=== PATIENT | female | born 1935 | race Caucasian/White ===

== ENCOUNTER 2017-04-03 17:28 | Inpatient (IN) | payer MEDICARE, MEDICAID ==
[2017-04-03 17:28] VITALS: BMI 21.9
--- NOTE | 2017-04-03 17:52 | ED PDOC ---
HPI: SOB/CHF/COPD Time Seen by Provider: 04/03/17 17:45 Chief Complaint (Nursing): Shortness Of Breath Chief Complaint (Provider): Dyspnea History Per: Patient History/Exam Limitations: no limitations Onset/Duration Of Symptoms: Days (months) Current Symptoms Are (Timing): Still Present Additional Complaint(s): Dyspnea, worsening. Chest tightness. Feels weakness all over. No abd pain, nausea, vomit, diarrhea. Dizziness, light-headed. No abd pain. No leg pain. No cough. Past Medical History Reviewed: Nursing Documentation, Vital Signs Vital Signs: Last Vital Signs Temp 98.0 F 04/03/17 17:34 Pulse 76 04/03/17 17:57 Resp 16 04/03/17 17:34 BP 131/55 L 04/03/17 17:34 Pulse Ox 99 04/03/17 18:56 - Medical History PMH: Anemia, HTN - Surgical History Surgical History: Appendectomy - Family History Family History: States: Unknown Family Hx - Living Arrangements Living Arrangements: With Family - Social History Current smoker - smoking cessation education provided: No Alcohol: None Drugs: Denies - Home Medications Home Medications: Ambulatory Orders Medication Instructions Recorded Ascorbic Acid [Vitamin C] 500 mg PO DAILY 11/25/14 Cholecalciferol (Vitamin D3) 1,000 unit NA DAILY 11/25/14 [Vitamin D3] FLUoxetine [Fluoxetine HCl] 20 mg PO DAILY 11/25/14 Fluticasone Propionate [Flovent 100 mcg IH DAILY 11/25/14 Diskus] Montelukast [Singulair] 1 tab PO DAILY 11/25/14 Pantoprazole Sodium [Protonix] 20 mg PO DAILY 11/25/14 Simvastatin 20 mg PO DAILY 11/25/14 - Allergies Allergies/Adverse Reactions: Allergies Allergy/AdvReac Type Severity Reaction Status Date / Time pollen Allergy ITCHING Uncoded 04/03/17 17:34 Review of Systems ROS Statement: Except As Marked, All Systems Reviewed And Found Negative Constitutional: Positive for: Weakness Cardiovascular: Positive for: Chest Pain, Light Headedness Respiratory: Positive for: Shortness of Breath Neurological: Positive for: Weakness, Dizziness Physical Exam - Reviewed Nursing Documentation Reviewed: Yes Vital Signs Reviewed: Yes - Physical Exam Appears: Positive for: Non-toxic, No Acute Distress Head Exam: Positive for: ATRAUMATIC, NORMAL INSPECTION, NORMOCEPHALIC Skin: Positive for: Normal Color, Warm, DRY Eye Exam: Positive for: EOMI, Normal appearance, PERRL ENT: Positive for: Normal ENT Inspection Neck: Positive for: Normal, Painless ROM Cardiovascular/Chest: Positive for: Regular Rate, Rhythm Respiratory: Positive for: CNT, Normal Breath Sounds Gastrointestinal/Abdominal: Positive for: Normal Exam, Bowel Sounds, Soft. Negative for: Tenderness Back: Positive for: Normal Inspection. Negative for: R CVA Tenderness Extremity: Positive for: Normal ROM Neurologic/Psych: Positive for: Alert, Oriented - Laboratory Results Result Diagrams: 04/03/17 18:00 04/03/17 18:25 Interpretation Of Abn Labs: 7.3 hg, 31/1.5 bun and cr; probnp elevation - ECG ECG: Positive for: Interpreted By Me, Viewed By Me ECG Rhythm: Positive for: Normal QRS, Normal ST Segment, Sinus Rhythm O2 Sat by Pulse Oximetry: 99 Pulse Ox Interpretation: Normal - Radiology X-Ray: Interpreted by Me, Viewed By Me X-Ray Interpretation: Cardiomegaly - Progress ED Course And Treament: 1858: Likely chf. Will give lasix, asa, and admit. Spoke with [facility] resident. Will admit tele obs. Dr. Ellison called and wanted pt. worked up. Disposition - Clinical Impression Clinical Impression: CHF exacerbation, Chest pain - Patient ED Disposition Is Patient to be Admitted: Yes Counseled Patient/Family Regarding: Studies Performed, Diagnosis - Disposition Disposition Time: 19:01 Condition: FAIR Forms: [facility] (Persian) - Pt Status Changed To: Hospital Disposition Of: Observation - POA Present On Arrival: None Core Measure Indicators: Chest Pain
[2017-04-03] MEDS ORDERED: Albuterol-Ipratrop 3 mg / 0.5 (3 ml) UD INH STA (17:54)
[2017-04-03] MEDS ORDERED: Albuterol-Ipratrop 3 mg / 0.5 (3 ml) UD IH STA (17:54)
[2017-04-03] MEDS ORDERED: Albuterol-Ipratrop 3 mg / 0.5 (3 ml) UD ONE (18:09)
[2017-04-03 18:30] LABS: BASO % 0.3 % (0.0-2.0); EOS # 0.1 K/uL (0.0-0.7); HEMATOCRIT 23.8 % (34.0-47.0); LYMPH # 1.7 K/uL (1.0-4.3); LYMPH % 33.4 % (20.0-40.0); MEAN CORPUSCULAR HEMOGLOBIN 22.7 pg (27.0-31.0); MEAN CORPUSCULAR HGB CONC 30.7 g/dL (33.0-37.0); MEAN PLATELET VOLUME 7.7 fl (7.2-11.7); MONO # 0.6 K/uL (0.0-0.8); MONO % 11.5 % (0.0-10.0); NEUT # 2.7 K/uL (1.8-7.0); NEUT % 53.8 % (50.0-75.0); NRBC % 0.1 % (0.0-0.0); RED CELL DISTRIBUTION WIDTH 17.3 % (11.5-14.5); WHITE BLOOD COUNT 5.1 K/uL (4.8-10.8)
[2017-04-03 18:37] LABS: ALB/GLOB RATIO 1.3 (1.0-2.1); ALKALINE PHOSPHATASE 66 U/L (38-126); ALT/SGPT 34 U/L (9-52); AST/SGOT 28 U/L (14-36); BILIRUBIN,TOTAL 0.2 mg/dl (0.2-1.3); BLOOD UREA NITROGEN 31 mg/dl (7-17); CALCIUM 9.1 mg/dL (8.4-10.2); CARBON DIOXIDE 23 mmol/L (22-30); CHLORIDE 104 mmol/L (98-107); GFR AFRICAN-AMERICAN 40; GLUCOSE,RANDOM 103 mg/dL (65-105); POTASSIUM 4.6 MMOL/L (3.6-5.0); SODIUM 136 mmol/l (132-148); TOTAL PROTEIN 6.9 G/DL (6.3-8.2)
[2017-04-03 18:47] LABS: PARTIAL THROMBOPLASTIN TIME 24.1 Seconds (25.6-37.1)
[2017-04-03 20:07] LABS: VENOUS BLOOD GAS BASE EXCESS 2.4 mmol/L (0.0-2.0); VENOUS BLOOD GAS PCO2 42 mmHg (40-60); VENOUS BLOOD PH 7.42 (7.32-7.43)
--- NOTE | 2017-04-03 20:18 | CP.PCM.HP ---
History of Present Illness - History of Present Illness History of Present Illness: Pt is a 81 y/o female with pmhx of HTN, HLD, Anemia presenting to ED with complaints of SOB but has been on going for about a month now, states now after about 3 steps she feels winded and have to catch her breath, also reports not feeling well overall, feels weak, denies any visual changes, chest pain, abdominal pain, fever, chills, dizziness, nausea or vomiting. PMD: Dr. Ellison PMHX: HTN, Anemia, HLD, Depression, Seasonal Allergies PSHX: Blanco Taylor Social: Denies alcohol or smoking Allergies: Environmental, NKDA Present on Admission - Present on Admission Any Indicators Present on Admission: No Review of Systems - Review of Systems All systems: reviewed and no additional remarkable complaints except Review of Systems: per HPI Past Patient History - Past Medical History & Family History Past Medical History?: Yes - Past Social History Alcohol: None Drugs: Denies - CARDIAC Hx Hypertension: Yes - HEMATOLOGICAL/ONCOLOGICAL Hx Anemia: Yes - PSYCHIATRIC Hx Substance Use: No - SURGICAL HISTORY Hx Appendectomy: Yes - ANESTHESIA Hx Anesthesia: Yes Hx Anesthesia Reactions: No Meds Allergies/Adverse Reactions: Allergies Allergy/AdvReac Type Severity Reaction Status Date / Time pollen Allergy ITCHING Uncoded 04/03/17 17:34 Physical Exam - Constitutional Appears: Well, No Acute Distress - Head Exam Head Exam: NORMOCEPHALIC - Eye Exam Eye Exam: PERRL Pupil Exam: NORMAL ACCOMODATION - ENT Exam ENT Exam: Mucous Membranes Moist - Respiratory Exam Respiratory Exam: Clear to Auscultation Bilateral, NORMAL BREATHING PATTERN. absent: Rhonchi, Wheezes - Cardiovascular Exam Cardiovascular Exam: REGULAR RHYTHM, +S1, +S2 - GI/Abdominal Exam GI & Abdominal Exam: Normal Bowel Sounds, Soft. absent: Tenderness - Extremities Exam Extremities exam: Negative for: calf tenderness, pedal edema - Neurological Exam Neurological exam: Alert, CN II-XII Intact, Oriented x3 - Skin Skin Exam: Normal Color, Warm Results - Vital Signs Recent Vital Signs: Last Vital Signs Temp 98.0 F 04/03/17 17:34 Pulse 76 04/03/17 17:57 Resp 16 04/03/17 17:34 BP 158/88 H 04/03/17 19:56 Pulse Ox 99 04/03/17 19:01 - Labs Result Diagrams: 04/03/17 18:00 04/03/17 18:25 Labs: Laboratory Results - last 24 hr 04/03/17 04/03/17 04/03/17 18:00 18:00 18:00 WBC 5.1 RBC 3.21 L Hgb 7.3 L Hct 23.8 L MCV 74.0 L MCH 22.7 L MCHC 30.7 L RDW 17.3 H Plt Count 313 MPV 7.7 Neut % (Auto) 53.8 Lymph % (Auto) 33.4 [place] % (Auto) 11.5 H Eos % (Auto) 1.0 Baso % (Auto) 0.3 Neut # 2.7 Lymph # 1.7 [place] # 0.6 Eos # 0.1 Baso # 0.0 PT 11.1 INR 1.1 APTT 24.1 L pO2 VBG pH VBG pCO2 VBG HCO3 VBG Total CO2 VBG O2 Sat (Calc) VBG Base Excess VBG Potassium Glucose Lactate FiO2 Sodium Potassium Chloride Carbon Dioxide Anion Gap BUN Creatinine Est GFR ( Amer) Est GFR (Non-Af Amer) Random Glucose Calcium Total Bilirubin AST ALT Alkaline Phosphatase Troponin I NT-Pro-B Natriuret Pep Total Protein Albumin Globulin Albumin/Globulin Ratio Venous Blood Potassium BBK History Checked No verified bt 04/03/17 04/03/17 18:25 20:00 WBC RBC Hgb Hct MCV MCH MCHC RDW Plt Count MPV Neut % (Auto) Lymph % (Auto) [place] % (Auto) Eos % (Auto) Baso % (Auto) Neut # Lymph # [place] # Eos # Baso # PT INR APTT pO2 19 L VBG pH 7.42 VBG pCO2 42 VBG HCO3 25.0 VBG Total CO2 28.5 H VBG O2 Sat (Calc) 34.0 L VBG Base Excess 2.4 H VBG Potassium 5.1 Glucose 107 H Lactate 1.3 FiO2 21.0 Sodium 136 137.0 Potassium 4.6 Chloride 104 106.0 Carbon Dioxide 23 Anion Gap 14 BUN 31 H Creatinine 1.5 H Est GFR ( Amer) 40 Est GFR (Non-Af Amer) 33 Random Glucose 103 Calcium 9.1 Total Bilirubin 0.2 AST 28 ALT 34 Alkaline Phosphatase 66 Troponin I < 0.0120 NT-Pro-B Natriuret Pep 1190 H Total Protein 6.9 Albumin 3.9 Globulin 3.0 Albumin/Globulin Ratio 1.3 Venous Blood Potassium 5.1 BBK History Checked Assessment & Plan - Assessment and Plan (Free Text) Assessment: 81 y/o female with pmhx of HTN, Anemia, HLD being admitted for dyspnea with activity and anemia Plan: 1. SOB (new onset CHF vs COPD given history of asthma vs Symptomatic anemia) -Pt does not have history of CHF,at this point, diagnosis is not CHF exacerbation -Echo ordered,f/u results -f/u official reading of chest xray -cardiology consulted -consider pulmonology consult 2. Anemia chronic history of anemia, had endoscopy in 2014 due to enemia which was WNL last H/H was 09/2016- 11.8/38.1, prior to that was 04/2016- 11.5/35.4 H/H today 7.3/23.8, repeating cbc at 4am consider transfusing in the morning; Type and screen ordered, results pending, f /u consider GI consult 3. HTN (uncontrolled) resumed home medication monitor 4. Asthma (moderate persistent) home medication resumed 5. Diet- heart healthy 6. DVT prophylaxis- Lovenox
[2017-04-04] MEDS ORDERED: Influenza Vaccine 18yr & older 0.5 ML/45 MCG SYR IM ONE (06:00)
[2017-04-04 06:32] LABS: HEMATOCRIT 25.5 % (34.0-47.0); MEAN CELL VOLUME 73.1 fl (81.0-99.0); MEAN CORPUSCULAR HGB CONC 31.5 g/dL (33.0-37.0); RED CELL DISTRIBUTION WIDTH 16.9 % (11.5-14.5); WHITE BLOOD COUNT 3.2 K/uL (4.8-10.8)
[2017-04-04] MEDS ORDERED: Pantoprazole 20 mg EC Tab PO SCH (09:00)
[2017-04-04] MEDS ORDERED: Enoxaparin 30 mg Syringe SC SCH (09:00)
--- NOTE | 2017-04-04 10:12 | RAD ---
HISTORY: dyspnea COMPARISON: Comparison is made to 04/03 11/14 FINDINGS: LUNGS: Mild pulmonary vascular congestion noted. PLEURA: No significant pleural effusion identified, no pneumothorax apparent. CARDIOVASCULAR: [id number] cardiomegaly again noted. OSSEOUS STRUCTURES: No significant abnormalities. VISUALIZED UPPER ABDOMEN: Normal. OTHER FINDINGS: None. IMPRESSION: Cardiomegaly and mild pulmonary vascular congestion.
--- NOTE | 2017-04-04 10:40 | CARD ---
APPROVED REPORT EXAM: Two-dimensional and M-mode echocardiogram with Doppler and color Doppler. Other Information Quality : GoodRhythm : NSR INDICATION Congestive Heart Failure 2D DIMENSIONS Left Atrium (2D)2.33 (1.6-4.0cm)IVSd1.11 (0.7-1.1cm) LVDd4.72 (3.9-5.9cm)PWd0.72 (0.7-1.1cm) IVSs1.18 (0.8-1.2cm)LVDs2.91 (2.5-4.0cm) FS (%) 38.4 %PWs0.63 (0.8-1.2cm) M-Mode DIMENSIONS Left Atrium (MM)3.71 (2.5-4.0cm)IVSd0.91 (0.7-1.1cm) Aortic Root3.03 (2.2-3.7cm)LVDd6.24 (4.0-5.6cm) Aortic Cusp Exc.1.50 (1.5-2.0cm)PWd0.91 (0.7-1.1cm) IVSs1.15 cmFS (%) 32 % LVDs4.24 (2.0-3.8cm)PWs1.18 cm Aortic Valve AoV Peak Xsuwmsuz456.1cm/sAoV VTI40.3cmAO Peak GR.24mmHg AO Mean GR.12mmHgAI P 1/2 [id number] Mitral Valve MV E Rxtdduik51.7cm/sMV DECEL IEFJ222qxAU A Fxzlliqe946.2cm/s MV FOJ22czI/A ratio0.8MVA (PHT)3.21cm2 TDI Lateral E' Peak V8.15cm/sMedial E' Peak V5.54cm/sE/Lateral E'10.1 E/Medial E'14.9 Pulmonary Valve PV Peak Pqtinute22.4cm/s Tricuspid Valve TR Peak Iecxdgmb950uz/sRAP NIEHYTZR83unOfZX Peak Gr.17mmHg [id number] LEFT VENTRICLE The left ventricle is normal size. There is normal left ventricular wall thickness. The left ventricular function is normal. The left ventricular ejection fraction is within the normal range. The Ejection Fraction is 65-70%. There is normal LV segmental wall motion. Transmitral Doppler flow pattern is Grade I-abnormal relaxation pattern. No left ventricle thrombus noted on this study. There is no mass noted in the left ventricle. RIGHT VENTRICLE The right ventricle is normal size. There is normal right ventricular wall thickness. The right ventricular systolic function is normal. ATRIA The left atrium size is normal. The right atrium size is normal. The interatrial septum is intact with no evidence for an atrial septal defect. AORTIC VALVE The aortic valve is normal in structure and function. There is mild aortic regurgitation. There is no aortic valvular stenosis. There is no aortic valvular vegetation. MITRAL VALVE The mitral valve is normal in structure and function. There is no evidence of mitral valve prolapse. There is no mitral valve stenosis. There is no mitral valve regurgitation noted. TRICUSPID VALVE The tricuspid valve is normal in structure and function. There is no tricuspid valve regurgitation noted. There is no tricuspid valve prolapse or vegetation. There is no tricuspid valve stenosis. PULMONIC VALVE The pulmonary valve is normal in structure and function. There is no pulmonic valvular regurgitation. There is no pulmonic valvular stenosis. GREAT VESSELS The aortic root is normal in size. The IVC is normal in size and collapses >50% with inspiration. PERICARDIAL EFFUSION The pericardium appears normal. There is no pleural effusion. <Conclusion> The left ventricle is normal size. The left ventricular function is normal. The left ventricular ejection fraction is within the normal range. The Ejection Fraction is 65-70%. Transmitral Doppler flow pattern is Grade I-abnormal relaxation pattern. There is mild aortic regurgitation.
--- NOTE | 2017-04-04 10:45 | CP.PCM.PN ---
Subjective - Date & Time of Evaluation Date of Evaluation: 04/04/17 Time of Evaluation: 07:25 - Subjective Subjective: Patient seen and examined in Telemetry this morning. Patient still c/o SOB, and intermittent dizziness, but denies chest pain, cough , acute visual changes, epigastric pain, blood in urine or stools. Patient reports that she took advil yesterday 2 tabs twice because headaches. Denies headaches ta this evaluation. Afebrile, no tachycardia, controlled BP Objective - Vital Signs/Intake and Output Vital Signs (last 24 hours): Temp Pulse Resp BP Pulse Ox 97.9 F 77 18 135/68 96 04/04/17 08:05 04/04/17 10:37 04/04/17 08:05 04/04/17 10:37 04/04/17 08:05 - Medications Medications: Current Medications Atorvastatin Calcium (Lipitor) 10 mg PO DAILY [facility] Last Admin: 04/04/17 08:22 Dose: 10 mg Enoxaparin Sodium (Lovenox) 30 mg SC DAILY [facility] PRN Reason: Protocol Last Admin: 04/04/17 08:22 Dose: 30 mg Escitalopram Oxalate (Lexapro) 10 mg PO DAILY [facility] Last Admin: 04/04/17 08:22 Dose: 10 mg Lisinopril (Zestril) 5 mg PO DAILY [facility] Last Admin: 04/04/17 10:37 Dose: 5 mg Montelukast Sodium (Singulair) 5 mg PO DAILY [facility] Last Admin: 04/04/17 10:37 Dose: 5 mg Pantoprazole Sodium (Protonix Ec Tab) 20 mg PO DAILY [facility] Last Admin: 04/04/17 08:22 Dose: 20 mg - Labs Labs: 04/04/17 05:00 04/03/17 18:25 PT 11.1 Seconds (9.8-13.1) 04/03/17 18:00 INR 1.1 (0.9-1.2) 04/03/17 18:00 APTT 24.1 Seconds (25.6-37.1) L 04/03/17 18:00 - Constitutional Appears: No Acute Distress - ENT Exam ENT Exam: Mucous Membranes Moist - Respiratory Exam Respiratory Exam: Clear to Ausculation Bilateral, NORMAL BREATHING PATTERN. absent: Chest Wall Tenderness, Rales, Rhonchi, Wheezes, Respiratory Distress, Stridor - Cardiovascular Exam Cardiovascular Exam: REGULAR RHYTHM, +S1, +S2 - GI/Abdominal Exam GI & Abdominal Exam: Soft, Normal Bowel Sounds. absent: Distended, Guarding, Rigid, Tenderness - Extremities Exam Extremities Exam: Normal Inspection. absent: Calf Tenderness, Pedal Edema - Neurological Exam Neurological Exam: Alert, Awake, Oriented x3 - Skin Skin Exam: Dry, Intact, Pallor Assessment and Plan - Assessment and Plan (Free Text) Assessment: 81 y/o female with pmhx of HTN, Anemia, HLD being admitted for symptomatic anemia. Plan: Microcytic anemia possible acute on chronic, unclear etiology chronic history of anemia, had endoscopy in 2014 due to enemia which was WNL last H/H was 09/2016- 11.8/38.1, prior to that was 04/2016- 11.5/35.4 H/H on admission was 7.3/23.8 Repeating cbc this morning was 8.0/25.5 will start anemia work up, and will hold transfusion for now Type and screen ordered GI consult appreciated, f/u rec Hemo consult appreciated , f/u rec HTN c/w lisinopril 5 mg PO f/u BP Hyperlipidemia c/w Atorvastatin 10 mg PO Asthma (moderate persistent) asymptomatic c/w singulair 5 mg PO Albuterol neb PRN DVT prophylaxis SCDs for now low H/H of unknown etiology
--- NOTE | 2017-04-04 10:49 | CARD ---
APPROVED REPORT EKG Measurement Heart [id number] <Conclusion> Normal sinus rhythm Normal ECG
[2017-04-04 11:13] LABS: HEMATOCRIT 24.6 % (34.0-47.0); MEAN CELL VOLUME 73.9 fl (81.0-99.0); MEAN CORPUSCULAR HEMOGLOBIN 22.7 pg (27.0-31.0); MEAN CORPUSCULAR HGB CONC 30.7 g/dL (33.0-37.0); RED CELL DISTRIBUTION WIDTH 17.3 % (11.5-14.5); RETIC% 2.3 % (0.5-1.5); WHITE BLOOD COUNT 7.1 K/uL (4.8-10.8)
[2017-04-04 11:20] LABS: BILIRUBIN,TOTAL 0.3 mg/dl (0.2-1.3)
[2017-04-04 11:22] LABS: IRON < 10 ug/dL (37-170)
--- NOTE | 2017-04-04 19:31 | CP.PCM.CON ---
History of Present Illness - History of Present Illness History of Present Illness: 81 year old female with a history of chronic iron deficiency anemia, admitted with symptomatic anemia. The patient is well known to me from the past and has recieved IV iron in the office for her iron deficiency. She underwent bone marrow evaluation for chronic anemia when her GI work up returned negative. She has not been seen by me since 2014. She reports to being treated in [place] for a GI parasite with resolution of her iron deficiency. She is not sure of the parasite she was treated for. She is s/p PRBC transfusion currently and reports to feeling better. She denies abnormal bleeding and bruising. Past medical history: Iron deficiency anemia Past surgical history: xochitl Taylor Family history: Denies hematologic and oncologic problems Social history: Denies tobacco, alcohol, and illicit drug use. Allergies: NKDA Review of systems: All remaining review of systems including HEENT, cardiovascular, respiratory, gastrointestinal, genitourinary, musculoskeletal, dermatologic, neurologic, and psychiatric are negative unless mentioned in the HPI. Past Patient History - Past Medical History & Family History Past Medical History?: Yes - Past Social History Alcohol: None Drugs: Denies - CARDIAC Hx Hypertension: Yes - HEMATOLOGICAL/ONCOLOGICAL Hx Anemia: Yes - MUSCULOSKELETAL/RHEUMATOLOGICAL Hx Falls: No - PSYCHIATRIC Hx Substance Use: No - SURGICAL HISTORY Hx Appendectomy: Yes - ANESTHESIA Hx Anesthesia: Yes Hx Anesthesia Reactions: No Meds Home Medications: Home Medication List Medication Instructions Recorded Confirmed Type Carvedilol [Coreg] 3.125 mg PO Q12 #60 tab 04/06/17 Rx Ferrous Sulfate [Feosol] 325 mg PO BID #60 tab 04/06/17 Rx Lisinopril [Zestril] 10 mg PO DAILY #30 tab 04/06/17 Rx Allergies/Adverse Reactions: Allergies Allergy/AdvReac Type Severity Reaction Status Date / Time pollen Allergy ITCHING Uncoded 04/03/17 17:34 - Medications Medications: Current Medications Atorvastatin Calcium (Lipitor) 10 mg PO DAILY [facility] Last Admin: 04/04/17 08:22 Dose: 10 mg Carvedilol (Coreg) 3.125 mg PO Q12 [facility] Escitalopram Oxalate (Lexapro) 10 mg PO DAILY [facility] Last Admin: 04/04/17 08:22 Dose: 10 mg Lisinopril (Zestril) 5 mg PO DAILY [facility] Last Admin: 04/04/17 10:37 Dose: 5 mg Montelukast Sodium (Singulair) 5 mg PO DAILY [facility] Last Admin: 04/04/17 10:37 Dose: 5 mg Pantoprazole Sodium (Protonix Ec Tab) 40 mg PO DAILY [facility] Physical Exam - Head Exam Head Exam: ATRAUMATIC - Eye Exam Eye Exam: Normal appearance - ENT Exam ENT Exam: Mucous Membranes Dry - Respiratory Exam Respiratory Exam: NORMAL BREATHING PATTERN - Cardiovascular Exam Cardiovascular Exam: +S1, +S2 - GI/Abdominal Exam GI & Abdominal Exam: Normal Bowel Sounds - Extremities Exam Extremities exam: Positive for: normal inspection - Neurological Exam Neurological exam: Oriented x3 - Psychiatric Exam Psychiatric exam: Normal Affect, Normal Mood - Skin Skin Exam: Warm Results - Vital Signs Recent Vital Signs: Last Vital Signs Temp 97.8 F 04/04/17 16:25 Pulse 76 04/04/17 16:25 Resp 16 04/04/17 16:25 BP 154/68 H 04/04/17 16:25 Pulse Ox 96 04/04/17 16:25 - Labs Result Diagrams: 04/06/17 07:00 04/06/17 05:30 Labs: Laboratory Results - last 24 hr 04/03/17 04/03/17 04/03/17 05:00 18:00 20:00 WBC RBC Hgb Hct MCV MCH MCHC RDW Plt Count Retic Count pO2 19 L VBG pH 7.42 VBG pCO2 42 VBG HCO3 25.0 VBG Total CO2 28.5 H VBG O2 Sat (Calc) 34.0 L VBG Base Excess 2.4 H VBG Potassium 5.1 Sodium 137.0 Chloride 106.0 Glucose 107 H Lactate 1.3 FiO2 21.0 Iron TIBC % Saturation Ferritin Total Bilirubin Direct Bilirubin Lactate Dehydrogenase Troponin I Venous Blood Potassium 5.1 Blood Type O POSITIVE Blood Type Confirm O POSITIVE Antibody Screen Negative Crossmatch See Detail BBK History Checked No verified bt 04/04/17 04/04/17 04/04/17 05:00 07:17 10:20 WBC 3.2 L 7.1 D RBC 3.49 L 3.33 L Hgb 8.0 L 7.6 L Hct 25.5 L 24.6 L MCV 73.1 L 73.9 L MCH 23.0 L 22.7 L MCHC 31.5 L 30.7 L RDW 16.9 H 17.3 H Plt Count 337 318 Retic Count 2.3 H pO2 VBG pH VBG pCO2 VBG HCO3 VBG Total CO2 VBG O2 Sat (Calc) VBG Base Excess VBG Potassium Sodium Chloride Glucose Lactate FiO2 Iron TIBC % Saturation Ferritin Total Bilirubin Direct Bilirubin Lactate Dehydrogenase Troponin I < 0.0120 Venous Blood Potassium Blood Type Blood Type Confirm Antibody Screen Crossmatch BBK History Checked 04/04/17 04/04/17 10:20 10:20 WBC RBC Hgb Hct MCV MCH MCHC RDW Plt Count Retic Count pO2 VBG pH VBG pCO2 VBG HCO3 VBG Total CO2 VBG O2 Sat (Calc) VBG Base Excess VBG Potassium Sodium Chloride Glucose Lactate FiO2 Iron < 10 L TIBC 396 % Saturation Ferritin 7.1 Total Bilirubin 0.3 Direct Bilirubin 0.2 Lactate Dehydrogenase 510 Troponin I Venous Blood Potassium Blood Type Blood Type Confirm Antibody Screen Crossmatch BBK History Checked Assessment & Plan (1) Anemia Assessment and Plan: work up consistent with iron deficiency agree with transfusion support and IV iron pt reports to GI parasite in the past no indication for repat bone marrow biopsy will need repeat GI w/u which can be done as an outpatient Thank you for this interesting consult Status: Acute
--- NOTE | 2017-04-04 21:16 | CP.PCM.CON ---
History of Present Illness - History of Present Illness History of Present Illness: PT CO RUIZ X 2 MONTHS W COUGH AND WEAKNESS. DENIES CP, PALP, LH, DIZZINESS, ORTHOPNEA, PND, CANDELARIO. NO N/V/D/C. NO F/C/NIGHT SWEATS. NO WEIGHT LOSS. PT HAS ANEMIA. 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 SHE WAS DIAGNOSED IN [place] AFTER TRAVELING TO [place]. SHE WAS TREATED AND HER SYMPTOMS WENT AWAY. THIS WAS 2 YEARS AGO. SHE DENIES ABD PAIN, HEMATURIA, HEMATOCHEZIA, MELENA, BRBPR. SHE DENIES VAGINAL BLEEDING OR GINGIVAL BLEEDING. PT ALSO HAS A HX OF CHEWING ON ICE CHIPS FOR MANY YEARS. Review of Systems - Constitutional Constitutional: As Per HPI, Fatigue, Lethargy, Weakness. absent: Anorexia, Chills, Daytime Sleepiness, Excessive Sweating, Fever, Frequent Falls, Headache , Increased Appetite, Malaise, Night Sweats, Snoring, Sleep Apnea, Weight Gain, Weight Loss, Other - EENT Eyes: As Per HPI. absent: Blind Spots, Blurred Vision, Change in Vision, Decreased Night Vision, Diplopia, Discharge, Dry Eye, Exophthalmos, Floaters, Irritation, Itchy Eyes, Loss of Peripheral Vision, Pain, Photophobia, Requires Corrective Lenses, Sees Flashes, Spots in Vision, Tunnel Vision, Other Visual Disturbances, Loss of Vision, Other Ears: As Per HPI. absent: Decreased Hearing, Ear Discharge, Ear Pain, Tinnitus , Abnormal Hearing, Disequilibrium, Dizziness, Other Nose/Mouth/Throat: As Per HPI. absent: Epistaxis, Nasal Congestion, Nasal Discharge, Nasal Obstruction, Nasal Trauma, Nose Pain, Post Nasal Drip, Sinus Pain, Sinus Pressure, Bleeding Gums, Change in Voice, Dental Pain, Dry Mouth, Dysphagia, Halitosis, Hoarsness, Lip Swelling, Mouth Lesions, Mouth Pain, Odynophagia, Sore Throat, Throat Swelling, Tongue Swelling, Facial Pain, Neck Pain, Neck Mass, Other - Breasts Breasts: As Per HPI. absent: Change in Shape, Mass, Pain, Nipple Discharge, Nipple Inversion, Skin Changes, Swelling, Other - Cardiovascular Cardiovascular: As Per HPI, Dyspnea on Exertion. absent: Acrocyanosis, Chest Pain, Chest Pain at Rest, Chest Pain with Activity, Claudication, Diaphoresis, Dyspnea, Edema, Irregular Heart Rhythm, Pain Radiating to Arm/Neck/Jaw, Leg Edema, Leg Ulcers, Lightheadedness, Orthopnea, Palpitations, Paroxysmal Nocturnal Dyspnea, Pedal Edema, Radiating Pain, Rapid Heart Rate, Slow Heart Rate, Syncope, Other - Respiratory Respiratory: As Per HPI. absent: Cough, Dyspnea, Hemoptysis, Dyspnea on Exertion, Wheezing, Snoring, Stridor, Pain on Inspiration, Chest Congestion, Excessive Mucous Production, Change in Mucous Color, Pain with Coughing, Other - Gastrointestinal Gastrointestinal: As Per HPI. absent: Abdominal Pain, Belching, Bloating, Change in Bowel Habits, Change in Stool Character, Coffee Ground Emesis, Constipation, Cramping, Diarrhea, Dyspepsia, Dysphagia, Early Satiety, Excessive Flatus, Fecal Incontinence, Heartburn, Hematemesis, Hematochezia, Loose Stools, Melena, Nausea, Odynophagia, Temesmus, Vomiting, Other - Genitourinary Genitourinary: As Per HPI. absent: Change in Urinary Stream, Difficulty Urinating, Dysuria, Flank Pain, Hematuria, Pyuria, Nocturia, Urinary Incontinence, Urinary Frequency, Urinary Hesitance, Urinary Urgency, Voiding Freq/Small Amts, Freq UTI, Hx Renal/Bladder Calculi, Hx /Renal Surgery, Bladder Distension, Other - Reproductive: Female Reproductive:Female: As Per HPI. absent: Amenorrhea, Amenorrhea/ Control, Currently Menstual, Cycle <21 Days, Cycle >35 Days, Cycle Variable, Menses 1-7 Days, Menses >/= 8 Days, Menses Variable, Cycle > 4 Weeks Between, No Menses for 6 Months, Heavy Menses, Light Menses, Normal Menses, Spotting Between Cycles , S/P Hysterectomy, Menopausal, Post Menopausal, Premenarche, Abnormal Vaginal Bleeding, Dysmenorrhea, Dyspareunia, Genital Lesions, Genital Pruritis, Pelvic Pain, Prolapse Symptoms, Sexual Dysfunction, Vaginal Discharge, Vaginal Dryness , Vaginal Odor, Vaginal Pruritis, Other - Menstruation Menstruation: As Per HPI. absent: Amenorrhea, Amenorrhea/ Control, Currently Menstual, Cycle <21 Days, Cycle >35 Days, Cycle Variable, Menses 1-7 Days, Menses >/= 8 Days, Menses Variable, Cycle > 4 Weeks Between, No Menses for 6 Months, Heavy Menses, Light Menses, Normal Menses, Spotting Between Cycles , S/P Hysterectomy, Menopausal, Post Menopausal, Premenarche, Abnormal Vaginal Bleeding, Dysmenorrhea, Other - Musculoskeletal Musculoskeletal: As Per HPI. absent: Abnormal Gait, Arthralgias, Atrophy, Back Pain, Deformity, Joint Swelling, Limited Range of Motion, Loss of Height, Muscle Cramps, Muscle Weakness, Myalgias, Neck Pain, Numbness, Radiating Pain into Limb, Stiffness, Tingling, Other - Integumentary Integumentary: As Per HPI. absent: Acne, Alopecia, Bleeding Lesions, Change in Hair, Change in Nails, Change in Pigmentation, Changing Lesions, Dry Skin, Erythema, Furuncle, Hirsutism, Lesions, New Lesions, Non-Healing Lesions, Photosensitivity, Pruritus, Rash, Skin Pain, Skin Ulcer, Sores, Striae, Swelling , Unusual Bruising, Wounds, Jaundice, Other - Neurological Neurological: As Per HPI. absent: Abnormal Gait, Abnormal Hearing, Abnormal Movements, Abnormal Speech, Behavioral Changes, Burning Sensations, Confusion, Convulsions, Disequilibrium, Dizziness, Numbness, Focal Weakness, Frequent Falls , Headaches, Lack of Coordination, Loss of Vision, Memory Loss, Paresthesias, Radicular Pain, Restless Legs, Sensory Deficit, Syncope, Tingling, Tremor, Vertigo, Weakness, Other Visual Disturbances, Other - Psychiatric Psychiatric: As Per HPI. absent: Abnormal Sleep Pattern, Anhedonia, Anxiety, Auditory Hallucinations, Behavioral Changes, Change in Appetite, Change in Libido, Confusion, Depression, Difficulty Concentrating, Hallucinations, Homicidal Ideation, Hopelessness, Irritability, Memory Loss, Mood Swings, Panic Attacks, Paranoia, Suicidal Ideation, Visual Hallucinations, Tactile Hallucinations, Other - Endocrine Endocrine: As Per HPI. absent: Change in Body Appearance, Change in Libido, Cold Intolorance, Deepening of Voice, Excessive Sweating, Fatigue, Flushing, Heat Intolorance, Increase in Ring/Shoe/Hat Size, Palpitations, Polydipsia, Polyphagia, Polyuria, Other - Hematologic/Lymphatic Hematologic: As Per HPI. absent: Easy Bleeding, Easy Bruising, Lymphadenopathy , Other Past Patient History - Past Medical History & Family History Past Medical History?: Yes - Past Social History Smoking Status: Never Smoked Chewing Tobacco Use: No Cigar Use: No Alcohol: None Drugs: Denies - CARDIAC Hx Hypertension: Yes - PULMONARY Hx Respiratory Disorders: No - NEUROLOGICAL Hx Neurological Disorder: No - HEENT Hx HEENT Problems: No - RENAL Hx Chronic Kidney Disease: No - ENDOCRINE/METABOLIC Hx Endocrine Disorders: No - HEMATOLOGICAL/ONCOLOGICAL Hx Anemia: Yes - INTEGUMENTARY Hx Dermatological Problems: No - MUSCULOSKELETAL/RHEUMATOLOGICAL Hx Musculoskeletal Disorders: No Hx Falls: No - GASTROINTESTINAL Hx Gastrointestinal Disorders: Yes (PARASITIC INFXN) - GENITOURINARY/GYNECOLOGICAL Hx Genitourinary Disorders: No - PSYCHIATRIC Hx Psychophysiologic Disorder: No Hx Substance Use: No - SURGICAL HISTORY Hx Appendectomy: Yes - ANESTHESIA Hx Anesthesia: Yes Hx Anesthesia Reactions: No Meds Allergies/Adverse Reactions: Allergies Allergy/AdvReac Type Severity Reaction Status Date / Time pollen Allergy ITCHING Uncoded 04/03/17 17:34 - Medications Medications: Current Medications Atorvastatin Calcium (Lipitor) 10 mg PO DAILY [facility] Last Admin: 04/04/17 08:22 Dose: 10 mg Carvedilol (Coreg) 3.125 mg PO Q12 [facility] Escitalopram Oxalate (Lexapro) 10 mg PO DAILY [facility] Last Admin: 04/04/17 08:22 Dose: 10 mg Iron Sucrose 200 mg/ Sodium (Chloride) 110 mls @ 110 mls/hr IVPB DAILY [facility] Stop: 04/09/17 20:01 Lisinopril (Zestril) 5 mg PO DAILY [facility] Last Admin: 04/04/17 10:37 Dose: 5 mg Montelukast Sodium (Singulair) 5 mg PO DAILY [facility] Last Admin: 04/04/17 10:37 Dose: 5 mg Pantoprazole Sodium (Protonix Ec Tab) 40 mg PO DAILY [facility] Physical Exam - Constitutional Appears: Non-toxic - Head Exam Head Exam: ATRAUMATIC, NORMAL INSPECTION, NORMOCEPHALIC - Eye Exam Eye Exam: EOMI, Normal appearance, PERRL. absent: Conjunctival injection, Nystagmus, Periorbital swelling, Periorbital tenderness, Scleral icterus Pupil Exam: NORMAL ACCOMODATION, PERRL. absent: Fixed, Irregular, Miosis, Mydriatic, Unequal - ENT Exam ENT Exam: Mucous Membranes Moist, Normal Exam. absent: Mucous Membranes Dry, Normal External Ear Exam, Normal Oropharynx, TM's Normal Bilaterally - Neck Exam Neck exam: Positive for: Normal Inspection. Negative for: Full Rom, Lymphadenopathy, Meningismus, Tenderness, Thyromegaly - Respiratory Exam Respiratory Exam: Clear to Auscultation Bilateral, NORMAL BREATHING PATTERN. absent: Accessory Muscle Use, Chest Wall Tenderness, Decreased Breath Sounds, Prolonged Expiratory Phase, Rales, Rhonchi, Wheezes, Respiratory Distress, Stridor - Cardiovascular Exam Cardiovascular Exam: REGULAR RHYTHM, +S1, +S2, Systolic Murmur. absent: Bradycardia, Tachycardia, Clicks, Diastolic murmur, Gallop, Irregular Rhythm, JVD, RRR, Rubs, +S4 - GI/Abdominal Exam GI & Abdominal Exam: Normal Bowel Sounds, Soft. absent: Bruit, Diminished Bowel Sounds, Distended, Firm, Guarding, Hernia, Hyperactive Bowel Sounds, Hypoactive Bowel Sounds, Mass, Organomegaly, Pulsatile Mass, Rebound, Rigid, Tenderness - Rectal Exam Rectal Exam: Deferred - Extremities Exam Extremities exam: Positive for: normal inspection. Negative for: calf tenderness, full ROM, joint swelling, normal capillary refill, pedal edema, tenderness, pedal pulses present - Back Exam Back exam: NORMAL INSPECTION. absent: CVA tenderness (L), CVA tenderness (R), FULL ROM, muscle spasm, paraspinal tenderness, rash noted, tenderness, vertebral tenderness - Neurological Exam Neurological exam: Alert, CN II-XII Intact, Normal Gait, Oriented x3, Reflexes Normal - Psychiatric Exam Psychiatric exam: Normal Affect, Normal Mood - Skin Skin Exam: Dry, Intact, Normal Color, Warm Results - Vital Signs Recent Vital Signs: Last Vital Signs Temp 98 F 04/04/17 20:04 Pulse 88 04/04/17 20:04 Resp 16 04/04/17 20:04 BP 169/62 H 04/04/17 20:04 Pulse Ox 99 04/04/17 20:04 - Labs Result Diagrams: 04/04/17 10:20 04/03/17 18:25 Labs: Laboratory Results - last 24 hr 04/03/17 04/03/17 04/04/17 05:00 18:00 05:00 WBC 3.2 L RBC 3.49 L Hgb 8.0 L Hct 25.5 L MCV 73.1 L MCH 23.0 L MCHC 31.5 L RDW 16.9 H Plt Count 337 Retic Count Iron TIBC % Saturation Ferritin Total Bilirubin Direct Bilirubin Lactate Dehydrogenase Troponin I Blood Type O POSITIVE Blood Type Confirm O POSITIVE Antibody Screen Negative Crossmatch See Detail BBK History Checked No verified bt 04/04/17 04/04/17 04/04/17 07:17 10:20 10:20 WBC 7.1 D RBC 3.33 L Hgb 7.6 L Hct 24.6 L MCV 73.9 L MCH 22.7 L MCHC 30.7 L RDW 17.3 H Plt Count 318 Retic Count 2.3 H Iron TIBC % Saturation Ferritin 7.1 Total Bilirubin 0.3 Direct Bilirubin 0.2 Lactate Dehydrogenase 510 Troponin I < 0.0120 Blood Type Blood Type Confirm Antibody Screen Crossmatch BBK History Checked 04/04/17 10:20 WBC RBC Hgb Hct MCV MCH MCHC RDW Plt Count Retic Count Iron < 10 L TIBC 396 % Saturation Ferritin Total Bilirubin Direct Bilirubin Lactate Dehydrogenase Troponin I Blood Type Blood Type Confirm Antibody Screen Crossmatch BBK History Checked - EKG Data EKG Interpreted by: Myself EKG shows normal: Sinus rhythm Rate: Normal Assessment & Plan (1) RUIZ (dyspnea on exertion) Status: Acute (2) Fatigue Status: Acute (3) Parasitic gastrointestinal disorder Status: Acute (4) Anemia Status: Acute (5) Pica in adults Status: Acute - Assessment and Plan (Free Text) Plan: PTS SYMPTOMS AND MURMUR MAY BE EXPLAINED BY HER ANEMIA. GIVEN HER PICA WOULD CONSIDER FE OR VIT/MINERAL DEF. GIVEN HX OF PARASITIC INFXN, GI OR ID EVAL MAY BE INDICATED. WILL ORDER ECHO FOR HER MURMUR AND RUIZ. NO NEED FOR ST PT HAS NO RISK FACTORS AND THIS DOES NOT APPEAR TO BE CARDIAC IN NATURE. 75 MIN TOTAL CARE TIME. WILL ALSO CHECK ESR, FE, B12, FOLATE, ZINC, MAG, VIT C AND D.
--- NOTE | 2017-04-04 23:42 | CP.PCM.PN ---
Subjective - Date & Time of Evaluation Date of Evaluation: 04/04/17 Time of Evaluation: 23:42 - Subjective Subjective: PT HAD ECHO YESTERDAY. MILD AI, NORMAL EF. BP INCREASED SO I ADDED COREG. Objective - Vital Signs/Intake and Output Vital Signs (last 24 hours): Temp Pulse Resp BP Pulse Ox 98 F 76 16 159/78 H 99 04/04/17 20:04 04/04/17 23:19 04/04/17 20:04 04/04/17 23:19 04/04/17 20:04 - Medications Medications: Current Medications Atorvastatin Calcium (Lipitor) 10 mg PO DAILY [facility] Last Admin: 04/04/17 08:22 Dose: 10 mg Carvedilol (Coreg) 3.125 mg PO Q12 [facility]S [facility] Last Admin: 04/04/17 23:19 Dose: 3.125 mg Escitalopram Oxalate (Lexapro) 10 mg PO DAILY [facility] 234 [facility]S AT [facility] Last Admin: 04/04/17 08:22 Dose: 10 mg Iron Sucrose 200 mg/ Sodium (Chloride) 110 mls @ 110 mls/hr IVPB DAILY [facility]S AT [facility] Stop: 04/09/17 20:01 Lisinopril (Zestril) 5 mg PO DAILY [facility]S [facility] Last Admin: 04/04/17 10:37 Dose: 5 mg Montelukast Sodium (Singulair) 5 mg PO DAILY [facility] 234 [facility]S AT [facility] Last Admin: 04/04/17 10:37 Dose: 5 mg Pantoprazole Sodium (Protonix Ec Tab) 40 mg PO DAILY [facility] 234 [facility]S [facility] - Labs Labs: 04/04/17 10:20 04/03/17 18:25 PT 11.1 Seconds (9.8-13.1) 04/03/17 18:00 INR 1.1 (0.9-1.2) 04/03/17 18:00 APTT 24.1 Seconds (25.6-37.1) L 04/03/17 18:00 Assessment and Plan (1) RUIZ (dyspnea on exertion) Status: Acute (2) Fatigue Status: Acute (3) Parasitic gastrointestinal disorder Status: Acute (4) Anemia Status: Acute (5) Pica in adults Status: Acute
[2017-04-05 06:50] LABS: BASO % 0.2 % (0.0-2.0); EOS # 0.1 K/uL (0.0-0.7); EOS % 0.8 % (0.0-4.0); HEMATOCRIT 31.5 % (34.0-47.0); LYMPH # 2.4 K/uL (1.0-4.3); LYMPH % 28.1 % (20.0-40.0); MEAN CELL VOLUME 76.5 fl (81.0-99.0); MEAN CORPUSCULAR HEMOGLOBIN 24.2 pg (27.0-31.0); MEAN CORPUSCULAR HGB CONC 31.6 g/dL (33.0-37.0); MEAN PLATELET VOLUME 7.7 fl (7.2-11.7); MONO # 0.5 K/uL (0.0-0.8); MONO % 6.2 % (0.0-10.0); NEUT # 5.4 K/uL (1.8-7.0); NEUT % 64.7 % (50.0-75.0); RED CELL DISTRIBUTION WIDTH 18.7 % (11.5-14.5); WHITE BLOOD COUNT 8.4 K/uL (4.8-10.8)
[2017-04-05 07:07] LABS: ALB/GLOB RATIO 1.3 (1.0-2.1); BILIRUBIN,TOTAL 0.4 mg/dl (0.2-1.3); CALCIUM 9.1 mg/dL (8.4-10.2); MAGNESIUM 2.2 MG/DL (1.6-2.3); POTASSIUM 4.5 MMOL/L (3.6-5.0); TOTAL PROTEIN 7.2 G/DL (6.3-8.2)
[2017-04-05 07:31] LABS: CARCINOEMBRYONIC ANTIGEN 1.7 ng/mL (0-3.0)
--- NOTE | 2017-04-05 09:26 | CP.PCM.PN ---
Subjective - Date & Time of Evaluation Date of Evaluation: 04/05/17 Time of Evaluation: 08:00 - Subjective Subjective: Patient seen and examined in telemetry this morning. Still feeling tired, however better than yesterday. Denies dizziness, SOB, Cp, blood in urine or stools at this eval. Had an uneventful night. Afebrile, slightly elevated BP, but has not taken yet her BP meds this morning. Objective - Vital Signs/Intake and Output Vital Signs (last 24 hours): Temp Pulse Resp BP Pulse Ox 98.2 F 60 18 155/68 H 97 04/05/17 07:53 04/05/17 07:53 04/05/17 07:53 04/05/17 07:53 04/05/17 07:53 - Medications Medications: Current Medications Atorvastatin Calcium (Lipitor) [address] [facility] Last Admin: 04/04/17 08:22 Dose: 10 mg Carvedilol (Coreg) 3.[address] [facility] Last Admin: 04/04/17 23:19 Dose: 3.125 mg Escitalopram Oxalate (Lexapro) [address] [facility] Last Admin: 04/04/17 08:22 Dose: 10 mg Iron Sucrose 200 mg/ Sodium (Chloride) 110 mls @ 110 mls/hr IVPB DAILY [facility] Stop: 04/09/17 20:01 Last Admin: 04/04/17 23:43 Dose: 110 mls/hr Lisinopril (Zestril) [address] [facility] Montelukast Sodium (Singulair) [address] [facility] Last Admin: 04/04/17 10:37 Dose: 5 mg Pantoprazole Sodium (Protonix Ec Tab) [address] [facility] - Labs Labs: 04/05/17 06:30 04/05/17 06:30 PT 11.1 Seconds (9.8-13.1) 04/03/17 18:00 INR 1.1 (0.9-1.2) 04/03/17 18:00 APTT 24.1 Seconds (25.6-37.1) L 04/03/17 18:00 - Constitutional Appears: No Acute Distress - ENT Exam ENT Exam: Mucous Membranes Moist - Respiratory Exam Respiratory Exam: Clear to Ausculation Bilateral, NORMAL BREATHING PATTERN - Cardiovascular Exam Cardiovascular Exam: REGULAR RHYTHM, +S1, +S2 - GI/Abdominal Exam GI & Abdominal Exam: Soft, Normal Bowel Sounds. absent: Distended, Guarding, Rigid, Tenderness - Extremities Exam Extremities Exam: Normal Inspection. absent: Calf Tenderness, Pedal Edema - Neurological Exam Neurological Exam: Alert, Awake, Oriented x3 Assessment and Plan - Assessment and Plan (Free Text) Assessment: 81 y/o female with pmhx of HTN, Anemia, HLD being admitted for symptomatic anemia. 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 chronic history of anemia, had endoscopy in 2014 due to enemia which was WNL last H/H was 09/2016- 11.8/38.1, prior to that was 04/2016- 11.5/35.4 H/H today 10.0/31.5 after 1 unit of PRBC s/p 1 unit of PRBC on 04/04/17 Started on Venofer IV as per Hemo rec, Dr. Amos, x 5 days. F/u rec for Venofer therapy Serum Iron < 10, low Ferritin, normal TIBC Normal Vitamin B12 pending rest of anemia work up f/u FOBT, stool Parasite and Ova f/u UA Hemo on board, f/u rec GI on board, as per GI no indication for EGD/Colonscopy urgently. Patient prefers outpatient procedure HTN c/w lisinopril 5 mg PO started on Coreg 3.125 BID on 04/04/17 because elevated BP. As per Cardio rec f/u BP As per Cardio rec, pt had an Echo yesterday, as per Cardio reading, it showed mild AI, normal EF. Cardiology on board, Dr. Stovall, f/u rec Hyperlipidemia c/w Atorvastatin 10 mg PO Asthma (moderate persistent) asymptomatic c/w singulair 5 mg PO Albuterol neb PRN DVT prophylaxis SCDs for now ambulating
--- NOTE | 2017-04-05 10:18 | CP.PCM.CON ---
<Fay Louis - Last Filed: 04/05/17 10:24> History of Present Illness - History of Present Illness History of Present Illness: PGY 4 Initial GI Consult Note Indy Ya is a 81F w/ hx of HTN, anemia, HLD, and depression who presents to the E[facility] with complaints of SOB especially on exhertion. Pt states that she has been feeling increasingly SOB for the past week. She was found to have an elevated BNP and is being actively tx for decompensated CHF. Pt was found to have a hgb of 7.6 on admission and was giben 1 unit PRBC. Repeat hgb was 10. Pt denies any hematemesis, melena, or coffee-ground emesis. As per son, his mother has a hx of anemia and in the past was given iron transfusions which helped her hgb improve. As per son, she has discontinued iron suppl for the past 1 year. He notes that she has also had a colonscopy within the last 1-2 years and it was neg, but cannot recall performing physician. Denies any recent weight loss. There are reports of previous parasite infections, but details are vague. PMD: Dr. Ellison PMHX: HTN, Anemia, HLD, Depression, Seasonal Allergies PSHX: Blanco Taylor Social: Denies alcohol or smoking Allergies: Environmental, NKDA Family hx: denies hx of colon ca ENdo hx: states she has a colonscopy 1-2 year ago and WNL as per pt and son ROS: 12-point ROS conducted, neg other than above Past Patient History - Past Medical History & Family History Past Medical History?: Yes - Past Social History Smoking Status: Never Smoked Chewing Tobacco Use: No Cigar Use: No Alcohol: None Drugs: Denies - CARDIAC Hx Hypertension: Yes - PULMONARY Hx Respiratory Disorders: No - NEUROLOGICAL Hx Neurological Disorder: No - HEENT Hx HEENT Problems: No - RENAL Hx Chronic Kidney Disease: No - ENDOCRINE/METABOLIC Hx Endocrine Disorders: No - HEMATOLOGICAL/ONCOLOGICAL Hx Anemia: Yes - INTEGUMENTARY Hx Dermatological Problems: No - MUSCULOSKELETAL/RHEUMATOLOGICAL Hx Musculoskeletal Disorders: No Hx Falls: No - GASTROINTESTINAL Hx Gastrointestinal Disorders: Yes (PARASITIC INFXN) - GENITOURINARY/GYNECOLOGICAL Hx Genitourinary Disorders: No - PSYCHIATRIC Hx Psychophysiologic Disorder: No Hx Substance Use: No - SURGICAL HISTORY Hx Appendectomy: Yes - ANESTHESIA Hx Anesthesia: Yes Hx Anesthesia Reactions: No Meds Allergies/Adverse Reactions: Allergies Allergy/AdvReac Type Severity Reaction Status Date / Time pollen Allergy ITCHING Uncoded 04/03/17 17:34 - Medications Medications: Current Medications Atorvastatin Calcium (Lipitor) 10 mg PO DAILY [facility] Last Admin: 04/04/17 08:22 Dose: 10 mg Carvedilol (Coreg) 3.125 mg PO Q12 [facility] Last Admin: 04/04/17 23:19 Dose: 3.125 mg Escitalopram Oxalate (Lexapro) 10 mg PO DAILY [facility] Last Admin: 04/04/17 08:22 Dose: 10 mg Iron Sucrose 200 mg/ Sodium (Chloride) 110 mls @ 110 mls/hr IVPB DAILY [facility] Stop: 04/09/17 20:01 Last Admin: 04/04/17 23:43 Dose: 110 mls/hr Lisinopril (Zestril) 5 mg PO DAILY [facility] Montelukast Sodium (Singulair) 5 mg PO DAILY [facility] Last Admin: 04/04/17 10:37 Dose: 5 mg Pantoprazole Sodium (Protonix Ec Tab) 40 mg PO DAILY [facility] Physical Exam - Constitutional Appears: Well, No Acute Distress - Head Exam Head Exam: ATRAUMATIC, NORMOCEPHALIC - Eye Exam Eye Exam: Normal appearance - ENT Exam ENT Exam: Mucous Membranes Moist, Normal Exam - Respiratory Exam Respiratory Exam: Rhonchi, NORMAL BREATHING PATTERN. absent: Rales, Wheezes, Respiratory Distress - Cardiovascular Exam Cardiovascular Exam: REGULAR RHYTHM, +S1, +S2 - GI/Abdominal Exam GI & Abdominal Exam: Normal Bowel Sounds, Soft. absent: Organomegaly, Pulsatile Mass, Rebound, Tenderness - Extremities Exam Extremities exam: Negative for: joint swelling, pedal edema - Neurological Exam Neurological exam: Alert, Oriented x3 - Psychiatric Exam Psychiatric exam: Normal Affect, Normal Mood - Skin Skin Exam: Dry, Intact, Normal Color, Warm Results - Vital Signs Recent Vital Signs: Last Vital Signs Temp 98.2 F 04/05/17 07:53 Pulse 60 04/05/17 07:53 Resp 18 04/05/17 07:53 BP 155/68 H 04/05/17 07:53 Pulse Ox 97 04/05/17 07:53 - Labs Result Diagrams: 04/05/17 06:30 04/05/17 06:30 Labs: Laboratory Results - last 24 hr 04/03/17 04/04/17 04/04/17 18:00 10:20 10:20 WBC 7.1 D RBC 3.33 L Hgb 7.6 L Hct 24.6 L MCV 73.9 L MCH 22.7 L MCHC 30.7 L RDW 17.3 H Plt Count 318 MPV Neut % (Auto) Lymph % (Auto) Moody % (Auto) Eos % (Auto) Baso % (Auto) Neut # Lymph # Moody # Eos # Baso # ESR Retic Count 2.3 H Haptoglobin Sodium Potassium Chloride Carbon Dioxide Anion Gap BUN Creatinine Est GFR ( Amer) Est GFR (Non-Af Amer) Random Glucose Calcium Magnesium Iron TIBC % Saturation Ferritin 7.1 Total Bilirubin 0.3 Direct Bilirubin 0.2 AST ALT Alkaline Phosphatase Lactate Dehydrogenase 510 Total Protein Albumin Globulin Albumin/Globulin Ratio Carcinoembryonic Ag Vitamin B12 Blood Type O POSITIVE Antibody Screen Negative Crossmatch See Detail BBK History Checked No verified bt 04/04/17 04/04/17 04/05/17 10:20 10:20 06:30 WBC 8.4 RBC 4.12 Hgb 10.0 L D Hct 31.5 L MCV 76.5 L D MCH 24.2 L MCHC 31.6 L RDW 18.7 H Plt Count 326 MPV 7.7 Neut % (Auto) 64.7 Lymph % (Auto) 28.1 Moody % (Auto) 6.2 Eos % (Auto) 0.8 Baso % (Auto) 0.2 Neut # 5.4 Lymph # 2.4 Moody # 0.5 Eos # 0.1 Baso # 0.0 ESR 25 Retic Count Haptoglobin 124 Sodium Potassium Chloride Carbon Dioxide Anion Gap BUN Creatinine Est GFR ( Amer) Est GFR (Non-Af Amer) Random Glucose Calcium Magnesium Iron < 10 L TIBC 396 % Saturation Ferritin Total Bilirubin Direct Bilirubin AST ALT Alkaline Phosphatase Lactate Dehydrogenase Total Protein Albumin Globulin Albumin/Globulin Ratio Carcinoembryonic Ag Vitamin B12 Blood Type Antibody Screen Crossmatch BBK History Checked 04/05/17 04/05/17 06:30 06:30 WBC RBC Hgb Hct MCV MCH MCHC RDW Plt Count MPV Neut % (Auto) Lymph % (Auto) Moody % (Auto) Eos % (Auto) Baso % (Auto) Neut # Lymph # Moody # Eos # Baso # ESR Retic Count 1.9 H Haptoglobin Sodium 143 Potassium 4.5 Chloride 104 Carbon Dioxide 27 Anion Gap 16 BUN 37 H Creatinine 1.3 H Est GFR ( Amer) 48 Est GFR (Non-Af Amer) 39 Random Glucose 94 Calcium 9.1 Magnesium 2.2 Iron TIBC % Saturation Ferritin Total Bilirubin 0.4 Direct Bilirubin AST 32 ALT 21 Alkaline Phosphatase 62 Lactate Dehydrogenase Total Protein 7.2 Albumin 4.0 Globulin 3.2 Albumin/Globulin Ratio 1.3 Carcinoembryonic Ag 1.7 Vitamin B12 866 Blood Type Antibody Screen Crossmatch BBK History Checked Assessment & Plan - Assessment and Plan (Free Text) Assessment: Indy Ya is a 81F w/ hx of HTN, anemia, HLD, and depression who presents with SOB and anemia. Her initial hgb was 7.6 and after 1 unit PRBC is now 10. SHe does not report any gross GI bleed. Etiology of her anemia is unknown; DDX: iron def vs chronic disease, r/o malignancy, AVM, polyps 1. Microcytic anemia 2.hx of anemia 3. SOB likely 2/2 decompensated CHF Plan: -continue to monitor H/H -no indication for EGD/Colonscopy urgently -Spoke with the pt and son, they prefer OUT procedure Tx CHF as per cardio -will need clearance for future procedure -follow-up as pt, contact info given for Dr. Rai -continue PPI protonix 40mg daily -no need for FOBT -will sign off, please reconsult if needed D/W Dr. Rai <Fredi EISENBERG,[facility] - Last Filed: 04/05/17 12:23> Meds - Medications Medications: Current Medications Atorvastatin Calcium (Lipitor) 10 mg PO DAILY [facility] Last Admin: 04/05/17 10:33 Dose: 10 mg Carvedilol (Coreg) 3.125 mg PO Q12 [facility] Last Admin: 04/05/17 10:32 Dose: 3.125 mg Escitalopram Oxalate (Lexapro) 10 mg PO DAILY [facility] Last Admin: 04/05/17 10:32 Dose: 10 mg Iron Sucrose 200 mg/ Sodium (Chloride) 110 mls @ 110 mls/hr IVPB DAILY [facility] Stop: 04/09/17 20:01 Last Admin: 04/04/17 23:43 Dose: 110 mls/hr Lisinopril (Zestril) 5 mg PO DAILY [facility] Montelukast Sodium (Singulair) 5 mg PO DAILY [facility] Last Admin: 04/05/17 10:33 Dose: 5 mg Pantoprazole Sodium (Protonix Ec Tab) 40 mg PO DAILY [facility] Last Admin: 04/05/17 10:33 Dose: 40 mg Results - Vital Signs Recent Vital Signs: Last Vital Signs Temp 98.2 F 04/05/17 07:53 Pulse 60 04/05/17 07:53 Resp 18 04/05/17 07:53 BP 155/68 H 04/05/17 07:53 Pulse Ox 97 04/05/17 07:53 - Labs Result Diagrams: 04/05/17 06:30 04/05/17 06:30 Labs: Laboratory Results - last 24 hr 04/03/17 04/04/17 04/05/17 18:00 10:20 06:30 WBC 8.4 RBC 4.12 Hgb 10.0 L D Hct 31.5 L MCV 76.5 L D MCH 24.2 L MCHC 31.6 L RDW 18.7 H Plt Count 326 MPV 7.7 Neut % (Auto) 64.7 Lymph % (Auto) 28.1 Moody % (Auto) 6.2 Eos % (Auto) 0.8 Baso % (Auto) 0.2 Neut # 5.4 Lymph # 2.4 Moody # 0.5 Eos # 0.1 Baso # 0.0 ESR 25 Retic Count Haptoglobin 124 Sodium Potassium Chloride Carbon Dioxide Anion Gap BUN Creatinine Est GFR ( Amer) Est GFR (Non-Af Amer) Random Glucose Calcium Magnesium Total Bilirubin AST ALT Alkaline Phosphatase C-React Prot High Sens Total Protein Albumin Globulin Albumin/Globulin Ratio Carcinoembryonic Ag Vitamin B12 25-OH Vitamin D Total Blood Type O POSITIVE Antibody Screen Negative Crossmatch See Detail BBK History Checked No verified bt 04/05/17 04/05/17 04/05/17 06:30 06:30 06:30 WBC RBC Hgb Hct MCV MCH MCHC RDW Plt Count MPV Neut % (Auto) Lymph % (Auto) Moody % (Auto) Eos % (Auto) Baso % (Auto) Neut # Lymph # Moody # Eos # Baso # ESR Retic Count 1.9 H Haptoglobin Sodium 143 Potassium 4.5 Chloride 104 Carbon Dioxide 27 Anion Gap 16 BUN 37 H Creatinine 1.3 H Est GFR ( Amer) 48 Est GFR (Non-Af Amer) 39 Random Glucose 94 Calcium 9.1 Magnesium 2.2 Total Bilirubin 0.4 AST 32 ALT 21 Alkaline Phosphatase 62 C-React Prot High Sens 0.52 L Total Protein 7.2 Albumin 4.0 Globulin 3.2 Albumin/Globulin Ratio 1.3 Carcinoembryonic Ag 1.7 Vitamin B12 866 25-OH Vitamin D Total Blood Type Antibody Screen Crossmatch BBK History Checked 04/05/17 06:30 WBC RBC Hgb Hct MCV MCH MCHC RDW Plt Count MPV Neut % (Auto) Lymph % (Auto) Moody % (Auto) Eos % (Auto) Baso % (Auto) Neut # Lymph # Moody # Eos # Baso # ESR Retic Count Haptoglobin Sodium Potassium Chloride Carbon Dioxide Anion Gap BUN Creatinine Est GFR ( Amer) Est GFR (Non-Af Amer) Random Glucose Calcium Magnesium Total Bilirubin AST ALT Alkaline Phosphatase C-React Prot High Sens Total Protein Albumin Globulin Albumin/Globulin Ratio Carcinoembryonic Ag Vitamin B12 25-OH Vitamin D Total 62.6 Blood Type Antibody Screen Crossmatch BBK History Checked Attending/Attestation - Attestation I have personally seen and examined this patient.: Yes I have fully participated in the care of the patient.: Yes I have reviewed all pertinent clinical information: Yes Notes (Text): 04/05/17 12:20 Patient seen and examined with GI fellow. This is a 81 yr old F w/ hx of HTN, anemia, HLD, and depression who presents with SOB and anemia. Found to be in CHF exacerbation. Baseline Hb 9, found to have 7.6. No s/s of overt GI bleeding. No indication for EGD/Colonoscopy urgently Follow up as outpatient with me for further work up. Continue PPI daily. Anemia work up. Rest of plan as per primary team. Thank you for letting us participate in the care of your patient
[2017-04-05] MEDS: Pantoprazole 40 mg EC Tab PO SCH (10:33)
--- NOTE | 2017-04-05 17:45 | CP.PCM.PN ---
Objective - Vital Signs/Intake and Output Vital Signs (last 24 hours): Temp Pulse Resp BP Pulse Ox 98.6 F 62 14 158/68 H 96 04/05/17 16:12 04/05/17 16:12 04/05/17 16:12 04/05/17 16:12 04/05/17 16:12 Intake and Output: 04/05/17 04/05/17 06:59 18:59 Intake Total 800 Balance 800 - Medications Medications: Current Medications Atorvastatin Calcium (Lipitor) 10 mg PO DAILY [facility] Last Admin: 04/05/17 10:33 Dose: 10 mg Carvedilol (Coreg) 3.125 mg PO Q12 [facility] Last Admin: 04/05/17 10:32 Dose: 3.125 mg Escitalopram Oxalate (Lexapro) 10 mg PO DAILY [facility] Last Admin: 04/05/17 10:32 Dose: 10 mg Iron Sucrose 200 mg/ Sodium (Chloride) 110 mls @ 110 mls/hr IVPB DAILY [facility] Stop: 04/09/17 20:01 Last Admin: 04/05/17 14:12 Dose: 110 mls/hr Lisinopril (Zestril) 10 mg PO DAILY [facility] Montelukast Sodium (Singulair) 5 mg PO DAILY [facility] Last Admin: 04/05/17 10:33 Dose: 5 mg Pantoprazole Sodium (Protonix Ec Tab) 40 mg PO DAILY [facility] Last Admin: 04/05/17 10:33 Dose: 40 mg - Labs Labs: 04/05/17 06:30 04/05/17 06:30 PT 11.1 Seconds (9.8-13.1) 04/03/17 18:00 INR 1.1 (0.9-1.2) 04/03/17 18:00 APTT 24.1 Seconds (25.6-37.1) L 04/03/17 18:00 Assessment and Plan (1) RUIZ (dyspnea on exertion) Status: Acute (2) Fatigue Status: Acute (3) Parasitic gastrointestinal disorder Status: Acute (4) Anemia Status: Acute (5) Pica in adults Status: Acute
[2017-04-06 00:12] VITALS: RESP 18
[2017-04-06 03:59] LABS: TOTAL PROTEIN, SERUM 6.8 g/dL (6.1-8.1)
[2017-04-06 07:31] LABS: MEAN CELL VOLUME 77.7 fl (81.0-99.0); MEAN CORPUSCULAR HEMOGLOBIN 24.1 pg (27.0-31.0); MEAN CORPUSCULAR HGB CONC 31.1 g/dL (33.0-37.0); RED CELL DISTRIBUTION WIDTH 18.4 % (11.5-14.5); WHITE BLOOD COUNT 6.9 K/uL (4.8-10.8)
[2017-04-06 07:48] LABS: CALCIUM 8.9 mg/dL (8.4-10.2); POTASSIUM 4.9 MMOL/L (3.6-5.0)
--- NOTE | 2017-04-06 09:45 | CP.PCM.DIS ---
Provider - Provider Date of Admission: 04/04/17 15:26 Attending physician: Linda Baez MD Consults: Cardiology and Hematology Time Spent in preparation of Discharge (in minutes): 30 Diagnosis - Discharge Diagnosis (1) Microcytic anemia Status: Chronic (2) RUIZ (dyspnea on exertion) Status: Acute Comment: resolved, most likely 2/2 anemia (3) Hypertension Status: Chronic (4) Hyperlipidemia Status: Chronic (5) Asthma Status: Chronic Comment: controlled.Asymptomatic. Most likely Intermittent asthma. Hospital Course - Lab Results Lab Results: Most Recent Lab Values WBC 6.9 K/uL (4.8-10.8) 04/06/17 07:00 RBC 3.86 Mil/uL (3.80-5.20) 04/06/17 07:00 Hgb 9.3 g/dL (12.0-16.0) L 04/06/17 07:00 Hct 30.0 % (34.0-47.0) L 04/06/17 07:00 MCV 77.7 fl (81.0-99.0) L 04/06/17 07:00 MCH 24.1 pg (27.0-31.0) L 04/06/17 07:00 MCHC 31.1 g/dL (33.0-37.0) L 04/06/17 07:00 RDW 18.4 % (11.5-14.5) H 04/06/17 07:00 Plt Count 288 K/uL (130-400) 04/06/17 07:00 MPV 7.7 fl (7.2-11.7) 04/05/17 06:30 Neut % (Auto) 64.7 % (50.0-75.0) 04/05/17 06:30 Lymph % (Auto) 28.1 % (20.0-40.0) 04/05/17 06:30 Hettinger % (Auto) 6.2 % (0.0-10.0) 04/05/17 06:30 Eos % (Auto) 0.8 % (0.0-4.0) 04/05/17 06:30 Baso % (Auto) 0.2 % (0.0-2.0) 04/05/17 06:30 Neut # 5.4 K/uL (1.8-7.0) 04/05/17 06:30 Lymph # 2.4 K/uL (1.0-4.3) 04/05/17 06:30 Hettinger # 0.5 K/uL (0.0-0.8) 04/05/17 06:30 Eos # 0.1 K/uL (0.0-0.7) 04/05/17 06:30 Baso # 0.0 K/uL (0.0-0.2) 04/05/17 06:30 ESR 25 mm/hr (0-30) 04/05/17 06:30 Retic Count 1.9 % (0.5-1.5) H 04/05/17 06:30 Haptoglobin 124 mg/dL (43-212) 04/04/17 10:20 PT 11.1 Seconds (9.8-13.1) 04/03/17 18:00 INR 1.1 (0.9-1.2) 04/03/17 18:00 APTT 24.1 Seconds (25.6-37.1) L 04/03/17 18:00 pO2 19 mm/Hg (30-55) L 04/03/17 20:00 VBG pH 7.42 (7.32-7.43) 04/03/17 20:00 VBG pCO2 42 mmHg (40-60) 04/03/17 20:00 VBG HCO3 25.0 mmol/L 04/03/17 20:00 VBG Total CO2 28.5 mmol/L (22-28) H 04/03/17 20:00 VBG O2 Sat (Calc) 34.0 % (40-65) L 04/03/17 20:00 VBG Base Excess 2.4 mmol/L (0.0-2.0) H 04/03/17 20:00 VBG Potassium 5.1 mmol/L (3.6-5.2) 04/03/17 20:00 Sodium 137.0 mmol/L (132-148) 04/03/17 20:00 Chloride 106.0 mmol/L (98-107) 04/03/17 20:00 Glucose 107 mg/dL (65-105) H 04/03/17 20:00 Lactate 1.3 mmol/L (0.7-2.1) 04/03/17 20:00 FiO2 21.0 % 04/03/17 20:00 Sodium 142 mmol/l (132-148) 04/06/17 05:30 Potassium 4.9 MMOL/L (3.6-5.0) 04/06/17 05:30 Chloride 106 mmol/L (98-107) 04/06/17 05:30 Carbon Dioxide 26 mmol/L (22-30) 04/06/17 05:30 Anion Gap 14 (10-20) 04/06/17 05:30 BUN 28 mg/dl (7-17) H 04/06/17 05:30 Creatinine 1.1 mg/dL (0.7-1.2) 04/06/17 05:30 Est GFR ( Amer) 58 04/06/17 05:30 Est GFR (Non-Af Amer) 48 04/06/17 05:30 Random Glucose 86 mg/dL (65-105) 04/06/17 05:30 Calcium 8.9 mg/dL (8.4-10.2) 04/06/17 05:30 Magnesium 2.2 MG/DL (1.6-2.3) 04/05/17 06:30 Iron < 10 ug/dL (37-170) L 04/04/17 10:20 TIBC 396 ug/dL (250-450) 04/04/17 10:20 % Saturation % (20-55) 04/04/17 10:20 Ferritin 7.1 ng/mL 04/04/17 10:20 Total Bilirubin 0.4 mg/dl (0.2-1.3) 04/05/17 06:30 Direct Bilirubin 0.2 mg/ml (0.0-0.4) 04/04/17 10:20 AST 32 U/L (14-36) 04/05/17 06:30 ALT 21 U/L (9-52) 04/05/17 06:30 Alkaline Phosphatase 62 U/L (38-126) 04/05/17 06:30 Lactate Dehydrogenase 510 U/L (313-618) 04/04/17 10:20 Troponin I < 0.0120 ng/mL (0.00-0.120) 04/04/17 07:17 C-React Prot High Sens 0.52 mg/L (1.00-3.00) L 04/05/17 06:30 NT-Pro-B Natriuret Pep 1190 pg/ml (0-900) H 04/03/17 18:25 Total Protein 7.2 G/DL (6.3-8.2) 04/05/17 06:30 Total Protein (PEP) 6.8 g/dL (6.1-8.1) 04/05/17 06:30 Albumin 4.0 g/dL (3.5-5.0) 04/05/17 06:30 Globulin 3.2 gm/dL (2.2-3.9) 04/05/17 06:30 Albumin/Globulin Ratio 1.3 (1.0-2.1) 04/05/17 06:30 Carcinoembryonic Ag 1.7 ng/mL (0-3.0) 04/05/17 06:30 Vitamin B12 866 pg/mL (239-931) 04/05/17 06:30 25-OH Vitamin D Total 62.6 NG/ML (30.0-100.0) 04/05/17 06:30 Venous Blood Potassium 5.1 mmol/L (3.6-5.2) 04/03/17 20:00 Blood Type O POSITIVE 04/03/17 18:00 Blood Type Confirm O POSITIVE 04/03/17 05:00 Antibody Screen Negative 04/03/17 18:00 Crossmatch See Detail 04/03/17 18:00 BBK History Checked No verified bt 04/03/17 18:00 - Hospital Course Hospital Course: 81 y/o female with pmhx of HTN, Anemia, HLD being admitted for symptomatic anemia. During admission 1 unit of PRBC was transfusion,and H/H improved. Hematology was consulted, Dr. Amos, and Venofer IV was given after transfusion. As per Dr. Amos, bone marrow biopsy was done in the past, and because results were normal, he does not planned to repeat BM biopsy at this time. Unclear etiology of patient's iron deficiency anemia. GI was consulted to r/o GI bleeding, and as per GI no indication for EGD/Colonscopy urgently. Patient prefers outpatient procedure. Because patient's BP was elevated on admission she was started on Coreg BID as per Cardiology rec, and lisinorpil dose increased. Patient is asymptomatic at this time, and stable to be discharge home on PO iron as per Hemo rec, f/u CBC script, and f/u with PMD, Dr. Ellison, f/u with GI, Dr. Rai, and f/u with Dr. Amos as outpatient. Home medications: Carvedilol 3.125 mg PO BID New Lexapro 10 mg PO daily Ferrous Sulfate 325 mg PO TID New Lisinopril 10 mg PO daily Changed because elevated BP Singulair 5 mg po daily Protonix 20 mg PO daily Simvastatin 20 mg PO daily - Date & Time of H&P Date of H&P: 04/03/17 Time of H&P: 20:20 Discharge Exam - Head Exam Head Exam: ATRAUMATIC, NORMOCEPHALIC - Additional Findings Additional findings: Constitutional Appears: No Acute Distress - ENT Exam ENT Exam: Mucous Membranes Moist - Respiratory Exam Respiratory Exam: Clear to Ausculation Bilateral, NORMAL BREATHING PATTERN - Cardiovascular Exam Cardiovascular Exam: REGULAR RHYTHM, +S1, +S2 - GI/Abdominal Exam GI & Abdominal Exam: Soft, Normal Bowel Sounds. absent: Distended, Guarding, Rigid, Tenderness - Extremities Exam Extremities Exam: Normal Inspection. absent: Calf Tenderness, Pedal Edema - Neurological Exam Neurological Exam: Alert, Awake, Oriented x3 Discharge Plan - Discharge Medications Prescriptions: Carvedilol [Coreg] 3.125 mg PO Q12 #60 tab Ferrous Sulfate [Feosol] 325 mg PO BID #60 tab Lisinopril [Zestril] 10 mg PO DAILY #30 tab - Follow Up Plan Condition: GOOD Disposition: HOME/ ROUTINE Instructions: Anemia (DC) Additional Instructions: F/u with Dr. Ellison on @ 5:20 pm F/u with Dr. Rai on Apr 2203/2017 @ 3 pm f/u with Dr. Amos in 1 week after discharge. ER precautions given. return to emergency room for any return of symptoms.
[2017-04-06] MEDS: Pantoprazole 40 mg EC Tab PO SCH (10:02)
[2017-04-06 12:12] VITALS: BP 148/66; PULSE 63; TEMP 98.1; O2SAT 97
--- NOTE | 2017-04-06 14:05 | CP.PCM.PN ---
Subjective - Date & Time of Evaluation Date of Evaluation: 04/05/17 Time of Evaluation: 11:00 - Subjective Subjective: No complaints, feeling better Objective - Vital Signs/Intake and Output Vital Signs (last 24 hours): Temp Pulse Resp BP Pulse Ox 98.1 F 63 18 148/66 97 04/06/17 12:11 04/06/17 12:11 04/06/17 12:11 04/06/17 12:11 04/06/17 12:11 - Medications Medications: Current Medications Atorvastatin Calcium (Lipitor) 10 mg PO DAILY [facility] Last Admin: 04/06/17 10:02 Dose: 10 mg Carvedilol (Coreg) 3.125 mg PO Q12 [facility] Last Admin: 04/06/17 10:01 Dose: 3.125 mg Escitalopram Oxalate (Lexapro) 10 mg PO DAILY [facility] Last Admin: 04/06/17 10:02 Dose: 10 mg Iron Sucrose 200 mg/ Sodium (Chloride) 110 mls @ 110 mls/hr IVPB DAILY [facility] Stop: 04/09/17 20:01 Last Admin: 04/06/17 10:13 Dose: 110 mls/hr Lisinopril (Zestril) 10 mg PO DAILY [facility] Last Admin: 04/06/17 10:05 Dose: 10 mg Montelukast Sodium (Singulair) 5 mg PO DAILY [facility] Last Admin: 04/06/17 10:05 Dose: 5 mg Pantoprazole Sodium (Protonix Ec Tab) 40 mg PO DAILY [facility] Last Admin: 04/06/17 10:02 Dose: 40 mg - Labs Labs: 04/06/17 07:00 04/06/17 05:30 PT 11.1 Seconds (9.8-13.1) 04/03/17 18:00 INR 1.1 (0.9-1.2) 04/03/17 18:00 APTT 24.1 Seconds (25.6-37.1) L 04/03/17 18:00 - Head Exam Head Exam: ATRAUMATIC - Eye Exam Eye Exam: Normal appearance - ENT Exam ENT Exam: Mucous Membranes Dry - Respiratory Exam Respiratory Exam: NORMAL BREATHING PATTERN - Cardiovascular Exam Cardiovascular Exam: +S1, +S2 - GI/Abdominal Exam GI & Abdominal Exam: Normal Bowel Sounds - Extremities Exam Extremities Exam: Normal Inspection Assessment and Plan (1) Anemia Assessment & Plan: iron deficiency s/p PRBC transfusion Venofer outpatient f/u Status: Acute
--- NOTE | 2017-04-06 14:50 | CP.PCM.PN ---
Subjective - Date & Time of Evaluation Date of Evaluation: 04/06/17 Time of Evaluation: 13:35 - Subjective Subjective: Feeling better Objective - Vital Signs/Intake and Output Vital Signs (last 24 hours): Temp Pulse Resp BP Pulse Ox 98.1 F 63 18 148/66 97 04/06/17 12:11 04/06/17 12:11 04/06/17 12:11 04/06/17 12:11 04/06/17 12:11 - Medications Medications: Current Medications Atorvastatin Calcium (Lipitor) 10 mg PO DAILY [facility] Last Admin: 04/06/17 10:02 Dose: 10 mg Carvedilol (Coreg) 3.125 mg PO Q12 [facility] Last Admin: 04/06/17 10:01 Dose: 3.125 mg Escitalopram Oxalate (Lexapro) 10 mg PO DAILY [facility] Last Admin: 04/06/17 10:02 Dose: 10 mg Iron Sucrose 200 mg/ Sodium (Chloride) 110 mls @ 110 mls/hr IVPB DAILY [facility] Stop: 04/09/17 20:01 Last Admin: 04/06/17 10:13 Dose: 110 mls/hr Lisinopril (Zestril) 10 mg PO DAILY [facility] Last Admin: 04/06/17 10:05 Dose: 10 mg Montelukast Sodium (Singulair) 5 mg PO DAILY [facility] Last Admin: 04/06/17 10:05 Dose: 5 mg Pantoprazole Sodium (Protonix Ec Tab) 40 mg PO DAILY [facility] Last Admin: 04/06/17 10:02 Dose: 40 mg - Labs Labs: 04/06/17 07:00 04/06/17 05:30 PT 11.1 Seconds (9.8-13.1) 04/03/17 18:00 INR 1.1 (0.9-1.2) 04/03/17 18:00 APTT 24.1 Seconds (25.6-37.1) L 04/03/17 18:00 - Head Exam Head Exam: ATRAUMATIC - Eye Exam Eye Exam: Normal appearance - ENT Exam ENT Exam: Mucous Membranes Dry - Respiratory Exam Respiratory Exam: NORMAL BREATHING PATTERN - Cardiovascular Exam Cardiovascular Exam: +S1, +S2 - GI/Abdominal Exam GI & Abdominal Exam: Normal Bowel Sounds - Extremities Exam Extremities Exam: Normal Inspection Assessment and Plan (1) Anemia Assessment & Plan: iron deficiency s/p PRBC transfusion Venofer outpatient f/u Status: Acute
[2017-04-06 17:56] LABS: RBC URINE < 1 /hpf (0-3); URINE BACTERIA RARE (<OCC); URINE BILIRUBIN NEGATIVE (NEGATIVE); URINE BLOOD SMALL (NEGATIVE); URINE COLOR YELLOW (YELLOW); URINE GLUCOSE (UA) NEG (Normal); URINE KETONE NEGATIVE (NEGATIVE); URINE LEUKOCYTE ESTERASE NEG Leu/uL (Negative); URINE PROTEIN NEGATIVE (NEGATIVE); URINE UROBILINOGEN 0.2-1.0 mg/dL (0.2-1.0); WBC URINE 3 /hpf (0-5)
[2017-04-08 11:27] LABS: BETA 1 GLOBULIN 0.5 g/dL (0.4-0.6); BETA 2 GLOBULIN 0.4 g/dL (0.2-0.5); GAMMA GLOBULIN 1.3 g/dL (0.8-1.7)
== END 2017-04-06 15:45 | disposition home or self-care (01) | DRG 812 ==
LOC: H.ER 17:28 → H.ERHOLD 19:01 → H.TEL 20:41 → OBSVTOIN 04-04 15:26
PROVIDERS: ADMIT Family Medicine Geriatric Medicine; ATTEND Family Medicine Geriatric Medicine
PROC: 30233N1 Transfusion of Nonautologous Red Blood Cells into Peripheral Vein, Percutaneous Approach (ICD-10-PCS; principal; 2017-04-04)
PROC: 3E0234Z Introduction of Serum, Toxoid and Vaccine into Muscle, Percutaneous Approach (ICD-10-PCS; 2017-04-04)
DX: D50.8 Other iron deficiency anemias (principal); F50.89 Other specified eating disorder; I10 Essential (primary) hypertension; J45.40 Moderate persistent asthma, uncomplicated; E78.5 Hyperlipidemia, unspecified; K92.89 Other specified diseases of the digestive system; F32.9 Major depressive disorder, single episode, unspecified; Z23 Encounter for immunization

== ENCOUNTER 2018-08-15 16:36 | Observation (INO) | payer MEDICAID, MEDICARE ==
[2018-08-15 16:37] VITALS: BMI 21.9
[2018-08-15] MEDS ORDERED: Sodium Chloride 0.9% 1,000 ML IV STA (17:51)
[2018-08-15 18:30] LABS: ALB/GLOB RATIO 1.1 (1.0-2.1); ALBUMIN 3.4 g/dL (3.5-5.0); ALT/SGPT 27 U/L (9-52); AST/SGOT 23 U/L (14-36); BLOOD UREA NITROGEN 37 mg/dl (7-17); CALCIUM 8.9 mg/dL (8.4-10.2); GFR NON-AFRICAN AMERICAN 33; LIPASE 288 U/L (23-300)
[2018-08-15 18:33] LABS: BASO % 0.3 % (0.0-2.0); EOS # 0.1 K/uL (0.0-0.7); HEMOGLOBIN 7.5 g/dL (12.0-16.0); LYMPH # 1.5 K/uL (1.0-4.3); LYMPH % 24.6 % (20.0-40.0); MEAN CORPUSCULAR HEMOGLOBIN 26.7 pg (27.0-31.0); MEAN PLATELET VOLUME 8.2 fl (7.2-11.7); MONO # 0.4 K/uL (0.0-0.8); MONO % 5.9 % (0.0-10.0); NEUT # 4.1 K/uL (1.8-7.0); NEUT % 68.2 % (50.0-75.0); RBC 2.81 Mil/uL (3.80-5.20); RED CELL DISTRIBUTION WIDTH 20.9 % (11.5-14.5)
--- NOTE | 2018-08-15 18:54 | ED PDOC ---
HPI: General Adult Time Seen by Provider: 08/15/18 17:42 Chief Complaint (Nursing): Weakness/Neurological Deficit Chief Complaint (Provider): dizziness, weakness, SOB History Per: Patient, Family (son) History/Exam Limitations: no limitations Onset/Duration Of Symptoms: Days (3-4 weeks ), Gradual Current Symptoms Are (Timing): Still Present Severity: Severe Recently: Treated By A Physician Additional Complaint(s): 82yo female hx chronic anemia on iron transfusions presents w son notes ongoing and worsening fatigue, presyncope, dyspnea on exertion and loss appetite. Denies melena, vomiting, fever, sore throat, headache, chills, abd pain, chest pain or trauma/injury. Past Medical History Reviewed: Historical Data, Nursing Documentation, Vital Signs Vital Signs: Last Vital Signs Temp 98.1 F 08/15/18 17:00 Pulse 73 08/15/18 17:00 Resp 16 08/15/18 17:00 BP 139/98 H 08/15/18 17:00 Pulse Ox 100 08/15/18 17:00 - Medical History PMH: Anemia, Asthma, HTN, Hyperlipidemia Denies: Chronic Kidney Disease - Surgical History Surgical History: Appendectomy - Family History Family History: States: Unknown Family Hx - Living Arrangements Living Arrangements: With Family - Social History Current smoker - smoking cessation education provided: No - Home Medications Home Medications: Ambulatory Orders Medication Instructions Recorded Montelukast [Singulair] 1 tab PO DAILY 11/25/14 Pantoprazole Sodium [Protonix] 20 mg PO DAILY 11/25/14 Simvastatin 20 mg PO DAILY 11/25/14 Escitalopram [Lexapro] 10 mg PO DAILY 04/03/17 Carvedilol [Coreg] 3.125 mg PO Q12 #60 tab 04/06/17 Ferrous Sulfate [Feosol] 325 mg PO BID #60 tab 04/06/17 Lisinopril [Zestril] 10 mg PO DAILY #30 tab 04/06/17 - Allergies Allergies/Adverse Reactions: Allergies Allergy/AdvReac Type Severity Reaction Status Date / Time pollen Allergy ITCHING Uncoded 04/03/17 17:34 Review of Systems Constitutional: Positive for: Weakness, Malaise, Weight loss Eyes: Negative for: Vision Change ENT: Negative for: Nose Discharge, Throat Pain Cardiovascular: Positive for: Palpitations, Light Headedness. Negative for: C hest Pain, Orthopnea Respiratory: Positive for: Shortness of Breath, SOB with Exertion Gastrointestinal: Negative for: Vomiting, Abdominal Pain Genitourinary Female: Negative for: Dysuria, Hematuria Musculoskeletal: Negative for: Neck Pain, Back Pain Skin: Negative for: Rash, Lesions, Jaundice Neurological: Positive for: Dizziness. Negative for: Weakness, Numbness, Change in Speech Psych: Negative for: Suicidal ideation Physical Exam - Reviewed Nursing Documentation Reviewed: Yes Vital Signs Reviewed: Yes - Physical Exam Appears: Positive for: Well, Non-toxic, No Acute Distress Head Exam: Positive for: ATRAUMATIC, NORMAL INSPECTION, NORMOCEPHALIC Skin: Positive for: Normal Color, Warm, DRY Eye Exam: Positive for: Normal appearance, EOMI, PERRL, Other (pale conjunctiva). Negative for: Conjunctival injection ENT: Negative for: Pharyngeal Erythema Neck: Positive for: Normal, Painless ROM Cardiovascular/Chest: Positive for: Regular Rate, Rhythm Respiratory: Positive for: CNT, Normal Breath Sounds Gastrointestinal/Abdominal: Positive for: Normal Exam, Soft. Negative for: Tenderness, Guarding Back: Positive for: Normal Inspection Extremity: Positive for: Normal ROM. Negative for: Tenderness, Deformity Neurologic/Psych: Positive for: Alert, Oriented. Negative for: Motor/Sensory Deficits - Laboratory Results Result Diagrams: 08/15/18 17:30 08/15/18 17:30 Lab Results: Troponin I < 0.0120 ng/mL (0.00-0.120) 08/15/18 17:30 Total Bilirubin < 0.1 mg/dl (0.2-1.3) L 08/15/18 17:30 AST 23 U/L (14-36) 08/15/18 17:30 ALT 27 U/L (9-52) 08/15/18 17:30 Alkaline Phosphatase 53 U/L (38-126) 08/15/18 17:30 Total Protein 6.6 G/DL (6.3-8.2) 08/15/18 17:30 Albumin 3.4 g/dL (3.5-5.0) L 08/15/18 17:30 Globulin 3.1 gm/dL (2.2-3.9) 08/15/18 17:30 Albumin/Globulin Ratio 1.1 (1.0-2.1) 08/15/18 17:30 Lipase 288 U/L (23-300) 08/15/18 17:30 - ECG O2 Sat by Pulse Oximetry: 100 Medical Decision Making Medical Decision Making: labs reveal anemia Admit to hospitalist for PRBC transfusion Discussed results w patient and son Consent for PRBC completed and signed Disposition - Clinical Impression Clinical Impression: Symptomatic anemia - Patient ED Disposition Is Patient to be Admitted: Yes - Disposition Disposition Time: 18:30 Condition: FAIR - Pt Status Changed To: Hospital Disposition Of: Observation
[2018-08-15 19:03] LABS: PROTHROMBIN TIME 11.5 Seconds (9.8-13.1)
--- NOTE | 2018-08-15 19:05 | RAD ---
HISTORY: SOB COMPARISON: Chest x-ray performed 04/03/17 TECHNIQUE: Chest, one view. FINDINGS: LUNGS: Moderate to large retrocardiac air-fluid level consistent with hiatal hernia. No focal consolidation. Please note that chest x-ray has limited sensitivity for the detection of pulmonary masses. PLEURA: No significant pleural effusion identified. No definite pneumothorax . CARDIOVASCULAR: Mild cardiomegaly. Faint atherosclerotic calcification of the aortic knob. OSSEOUS STRUCTURES: No acute osseous abnormality identified. VISUALIZED UPPER ABDOMEN: Unremarkable. OTHER FINDINGS: None. IMPRESSION: No focal consolidation. Moderate to large retrocardiac air-fluid level consistent with hiatal hernia.
[2018-08-15 19:06] LABS: PARTIAL THROMBOPLASTIN TIME 26.3 Seconds (25.6-37.1)
--- NOTE | 2018-08-15 19:37 | CP.PCM.HP ---
<Libia Lind - Last Filed: 08/16/18 03:53> History of Present Illness - History of Present Illness History of Present Illness: 82 yo F with history of chronic iron def anemia (had extensive GI/hemeonc workup in the past), hypertension, seasonal allergies, depression/anxiety, admitted due to symptomatic anemia. Pt was last seen at [facility] in June 2018, at that time was re-started on PO iron which she has been taking twice daily. She states that she was supposed to have office visit today but did not go due to feeling ill. Her symptoms include worsening fatigue, presyncope, dyspnea on climbing stairs. She denies easy bruising, blood in urine, vaginal bleeding, blood in stool, or any other bleeding. Son at bedside, states that this has happened before where her hemoglobin drops and she gets symptomatic. Denies melena, vomiting, fever, sore throat, headache, chills, abd pain, chest pain or trauma/injury. PMD: Dr. Ramsey Ellison Med hx: chronic iron def anemia (had extensive GI/hemeonc workup in the past), hypertension, seasonal allergies, depression/anxiety Surg hx: xochitl scherer Meds: carvedilol 3.125 PO Q12, lisinopril 10 mg PO daily, lexapro 10 mg PO daily, montelukast 10 mg PO daily, Pantoprazole 20 mg PO daily, ferrous sulfate 325 mg PO BID Social hx: denies tobacco, alcohol, drug use Allergies: pollen, (bactrim listed in eCW) NOK: sonNadir; [phone] Code status: full code ED: Vitals: BP 139/98, HR 73, Adam 98.1, RR 16, O2 sat 100 CBC: WBC 6.0, Hgb 7.5, Hct 22.8, PLT 302 PT 11.5, INR 1.0 CMP: significant for CKD; BUN 37, Cr 1.5, GFR 33. On review of EMR last known outpt lab 11/2017 BUN 23, Cr 0.9, GFR 59; prior to that 03/2017 BUN 31-28 Cr 1.3- 1.5, GFR 33-48 UA: trace LE, no blood CXR: mild cardiomegaly, faint calcification of aortic knob, hiatal hernia, no significant pleural effusion, no focal consolidation Present on Admission - Present on Admission Any Indicators Present on Admission: No Review of Systems - Review of Systems Review of Systems: as per HPI Past Patient History - Past Medical History & Family History Past Medical History?: Yes - Past Social History Smoking Status: Never Smoked - CARDIAC Hx Hypertension: Yes - NEUROLOGICAL Hx Neurological Disorder: No - HEENT Hx HEENT Problems: No - RENAL Hx Chronic Kidney Disease: Yes - ENDOCRINE/METABOLIC Hx Endocrine Disorders: No - HEMATOLOGICAL/ONCOLOGICAL Hx Anemia: Yes - INTEGUMENTARY Hx Dermatological Problems: No - MUSCULOSKELETAL/RHEUMATOLOGICAL Hx Musculoskeletal Disorders: No - GASTROINTESTINAL Hx Gastrointestinal Disorders: Yes (PARASITIC INFXN) - GENITOURINARY/GYNECOLOGICAL Hx Genitourinary Disorders: No - PSYCHIATRIC Hx Psychophysiologic Disorder: No Hx Substance Use: No - SURGICAL HISTORY Hx Appendectomy: Yes - ANESTHESIA Hx Anesthesia: Yes Hx Anesthesia Reactions: No Meds Allergies/Adverse Reactions: Allergies Allergy/AdvReac Type Severity Reaction Status Date / Time sulfamethoxazole AdvReac DIZZINESS Verified 08/15/18 22:04 [From Bactrim] trimethoprim [From Bactrim] AdvReac DIZZINESS Verified 08/15/18 22:04 pollen Allergy ITCHING Uncoded 04/03/17 17:34 Physical Exam - Constitutional Appears: No Acute Distress, Younger Than Stated Age - Head Exam Head Exam: NORMAL INSPECTION - Eye Exam Additional comments: somewhat pale conjunctiva - ENT Exam ENT Exam: Mucous Membranes Moist - Neck Exam Neck exam: Positive for: Full Rom - Respiratory Exam Respiratory Exam: Clear to Auscultation Bilateral, NORMAL BREATHING PATTERN. absent: Respiratory Distress - Cardiovascular Exam Cardiovascular Exam: REGULAR RHYTHM, +S1, +S2 - GI/Abdominal Exam GI & Abdominal Exam: Soft - Extremities Exam Extremities exam: Positive for: normal inspection. Negative for: calf tenderness, pedal edema - Neurological Exam Neurological exam: Alert, Oriented x3 - Psychiatric Exam Psychiatric exam: Normal Affect, Normal Mood - Skin Skin Exam: Dry, Warm Results - Vital Signs Recent Vital Signs: Last Vital Signs Temp 98.1 F 08/15/18 17:00 Pulse 73 08/15/18 17:00 Resp 16 08/15/18 17:00 BP 139/98 H 08/15/18 17:00 Pulse Ox 100 08/15/18 18:55 - Labs Result Diagrams: 08/15/18 17:30 08/15/18 17:30 Labs: Laboratory Results - last 24 hr 08/15/18 08/15/18 08/15/18 17:30 17:30 17:30 WBC 6.0 RBC 2.81 L Hgb 7.5 L Hct 22.8 L MCV 81.0 D MCH 26.7 L MCHC 33.0 RDW 20.9 H Plt Count 302 MPV 8.2 Neut % (Auto) 68.2 Lymph % (Auto) 24.6 [place] % (Auto) 5.9 Eos % (Auto) 1.0 Baso % (Auto) 0.3 Neut # (Auto) 4.1 Lymph # (Auto) 1.5 [place] # (Auto) 0.4 Eos # (Auto) 0.1 Baso # (Auto) 0.0 PT INR APTT Sodium 138 Potassium 4.7 Chloride 101 Carbon Dioxide 25 Anion Gap 17 BUN 37 H Creatinine 1.5 H Est GFR ( Amer) 40 Est GFR (Non-Af Amer) 33 Random Glucose 84 Calcium 8.9 Phosphorus 4.0 Magnesium 2.1 Total Bilirubin < 0.1 L AST 23 ALT 27 Alkaline Phosphatase 53 Troponin I < 0.0120 Total Protein 6.6 Albumin 3.4 L Globulin 3.1 Albumin/Globulin Ratio 1.1 Lipase 288 Blood Type O POSITIVE Antibody Screen Negative Crossmatch See Detail BBK History Checked Patient has bt 08/15/18 18:38 WBC RBC Hgb Hct MCV MCH MCHC RDW Plt Count MPV Neut % (Auto) Lymph % (Auto) [place] % (Auto) Eos % (Auto) Baso % (Auto) Neut # (Auto) Lymph # (Auto) [place] # (Auto) Eos # (Auto) Baso # (Auto) PT 11.5 INR 1.0 APTT 26.3 Sodium Potassium Chloride Carbon Dioxide Anion Gap BUN Creatinine Est GFR ( Amer) Est GFR (Non-Af Amer) Random Glucose Calcium Phosphorus Magnesium Total Bilirubin AST ALT Alkaline Phosphatase Troponin I Total Protein Albumin Globulin Albumin/Globulin Ratio Lipase Blood Type Antibody Screen Crossmatch BBK History Checked Assessment & Plan - Assessment and Plan (Free Text) Assessment: 82 yo F with history of chronic iron def anemia (had extensive GI/hemeonc workup in the past), hypertension, seasonal allergies, depression, admitted due to symptomatic anemia; Hgb 7.5. Plan: Symptomatic Anemia - Likely iron deficiency; has had prior workup with GI/Heme onc, had bone marrow biopsy in 2014 - F/u iron, TIBC, ferritin, transferrin - 2U PRBC ordered in ED - Continue home med ferrous sulfate 325 mg BID - Fall precaution - CBC in am CKD, Stage 3B - BUN/Cr 37/1.5; last known outpt lab 11/2017 BUN 23, Cr 0.9, GFR 59; prior to that 03/2017 BUN 31-28 Cr 1.3-1.5, GFR 33-48 - s/p 1L NS - BMP in am Hypertension - Continue home meds lisinopril and carvedilol Environmental/Seasonal allergies - Continue home med montelukast Depression/Anxiety - Continue home med Diet - Heart Healthy diet Prophylaxis - SCD for now Full Code Pt seen/discussed with Dr. Carrion. <Tu Carrion D - Last Filed: 08/16/18 09:18> Results - Vital Signs Recent Vital Signs: Last Vital Signs Temp 97.5 F L 08/16/18 08:29 Pulse 59 L 08/16/18 08:29 Resp 21 08/16/18 08:29 BP 159/70 H 08/16/18 08:29 Pulse Ox 100 08/16/18 08:29 - Labs Result Diagrams: 08/15/18 17:30 08/15/18 17:30 Labs: Laboratory Results - last 24 hr 08/15/18 08/15/18 08/15/18 17:30 17:30 17:30 WBC 6.0 RBC 2.81 L Hgb 7.5 L Hct 22.8 L MCV 81.0 D MCH 26.7 L MCHC 33.0 RDW 20.9 H Plt Count 302 MPV 8.2 Neut % (Auto) 68.2 Lymph % (Auto) 24.6 [place] % (Auto) 5.9 Eos % (Auto) 1.0 Baso % (Auto) 0.3 Neut # (Auto) 4.1 Lymph # (Auto) 1.5 [place] # (Auto) 0.4 Eos # (Auto) 0.1 Baso # (Auto) 0.0 PT INR APTT Sodium 138 Potassium 4.7 Chloride 101 Carbon Dioxide 25 Anion Gap 17 BUN 37 H Creatinine 1.5 H Est GFR ( Amer) 40 Est GFR (Non-Af Amer) 33 POC Glucose (mg/dL) Random Glucose 84 Calcium 8.9 Phosphorus 4.0 Magnesium 2.1 Iron TIBC % Saturation Ferritin Total Bilirubin < 0.1 L AST 23 ALT 27 Alkaline Phosphatase 53 Troponin I < 0.0120 Total Protein 6.6 Albumin 3.4 L Globulin 3.1 Albumin/Globulin Ratio 1.1 Lipase 288 Urine Color Urine Clarity Urine pH Ur Specific [place] Urine Protein Urine Glucose (UA) Urine Ketones Urine Blood Urine Nitrate Urine Bilirubin Urine Urobilinogen Ur Leukocyte Esterase Urine RBC (Auto) Urine Microscopic WBC Ur Squamous Epith Cells Urine Bacteria Hyaline Casts Blood Type O POSITIVE Antibody Screen Negative Crossmatch See Detail BBK History Checked Patient has bt 08/15/18 08/15/18 08/15/18 18:20 18:38 20:10 WBC RBC Hgb Hct MCV MCH MCHC RDW Plt Count MPV Neut % (Auto) Lymph % (Auto) [place] % (Auto) Eos % (Auto) Baso % (Auto) Neut # (Auto) Lymph # (Auto) [place] # (Auto) Eos # (Auto) Baso # (Auto) PT 11.5 INR 1.0 APTT 26.3 Sodium Potassium Chloride Carbon Dioxide Anion Gap BUN Creatinine Est GFR ( Amer) Est GFR (Non-Af Amer) POC Glucose (mg/dL) 90 Random Glucose Calcium Phosphorus Magnesium Iron TIBC % Saturation Ferritin Total Bilirubin AST ALT Alkaline Phosphatase Troponin I Total Protein Albumin Globulin Albumin/Globulin Ratio Lipase Urine Color Straw Urine Clarity Clear Urine pH 7.0 Ur Specific [place] 1.012 Urine Protein Negative Urine Glucose (UA) Neg Urine Ketones Negative Urine Blood Negative Urine Nitrate Negative Urine Bilirubin Negative Urine Urobilinogen 0.2-1.0 Ur Leukocyte Esterase Trace Urine RBC (Auto) 3 Urine Microscopic WBC 5 Ur Squamous Epith Cells < 1 Urine Bacteria Rare Hyaline Casts 3-5 H Blood Type Antibody Screen Crossmatch BBK History Checked 08/15/18 08/15/18 21:00 21:16 WBC RBC Hgb Hct MCV MCH MCHC RDW Plt Count MPV Neut % (Auto) Lymph % (Auto) [place] % (Auto) Eos % (Auto) Baso % (Auto) Neut # (Auto) Lymph # (Auto) [place] # (Auto) Eos # (Auto) Baso # (Auto) PT INR APTT Sodium Potassium Chloride Carbon Dioxide Anion Gap BUN Creatinine Est GFR ( Amer) Est GFR (Non-Af Amer) POC Glucose (mg/dL) Random Glucose Calcium Phosphorus Magnesium Iron 88 TIBC 306 % Saturation 29 Ferritin 11.8 Total Bilirubin AST ALT Alkaline Phosphatase Troponin I Total Protein Albumin Globulin Albumin/Globulin Ratio Lipase Urine Color Urine Clarity Urine pH Ur Specific [place] Urine Protein Urine Glucose (UA) Urine Ketones Urine Blood Urine Nitrate Urine Bilirubin Urine Urobilinogen Ur Leukocyte Esterase Urine RBC (Auto) Urine Microscopic WBC Ur Squamous Epith Cells Urine Bacteria Hyaline Casts Blood Type Antibody Screen Crossmatch BBK History Checked Attending/Attestation - Attestation I have personally seen and examined this patient.: Yes I have fully participated in the care of the patient.: Yes I have reviewed all pertinent clinical information: Yes Notes (Text): 08/16/18 09:17 Patient seen and examined with resident. Case discussed and agreed with assessment and plan of management.
[2018-08-15 20:51] LABS: SQUAMOUS EPITHIAL < 1 /hpf (0-5); URINE BACTERIA RARE (<OCC); URINE BILIRUBIN NEGATIVE (NEGATIVE); URINE BLOOD NEGATIVE (NEGATIVE); URINE CLARITY CLEAR (Clear); URINE COLOR STRAW (YELLOW); URINE GLUCOSE (UA) NEG (NEGATIVE); URINE LEUKOCYTE ESTERASE TRACE Leu/uL (Negative); URINE PROTEIN NEGATIVE (NEGATIVE); URINE UROBILINOGEN 0.2-1.0 mg/dL (0.2-1.0)
[2018-08-15 21:54] LABS: IRON 88 ug/dL (37-170)
[2018-08-15 22:03] LABS: % IRON SATURATION 29 % (20-55); TOTAL IRON BINDING CAPACITY 306 ug/dL (250-450)
[2018-08-16 08:30] VITALS: RESP 21; TEMP 97.5; O2SAT 100
[2018-08-16] MEDS ORDERED: Pantoprazole 20 mg EC Tab PO SCH (09:00)
[2018-08-16 10:44] LABS: MEAN CORPUSCULAR HEMOGLOBIN 27.8 pg (27.0-31.0); MEAN CORPUSCULAR HGB CONC 33.5 g/dL (33.0-37.0); RBC 3.59 Mil/uL (3.80-5.20); RED CELL DISTRIBUTION WIDTH 19.2 % (11.5-14.5); WHITE BLOOD COUNT 5.8 K/uL (4.8-10.8)
[2018-08-16 10:49] LABS: MEAN CELL VOLUME 83.2 fl (81.0-99.0)
[2018-08-16 10:55] LABS: CALCIUM 8.4 mg/dL (8.4-10.2)
[2018-08-16 11:01] VITALS: BP 118/68; PULSE 67
--- NOTE | 2018-08-16 11:08 | CP.PCM.DIS ---
Provider - Provider Date of Admission: 08/15/18 18:41 Attending physician: Tu Carrion MD Primary care physician: Dr Lenny Ellison Time Spent in preparation of Discharge (in minutes): 25 Diagnosis - Discharge Diagnosis (1) Symptomatic anemia Status: Acute Comment: received 2 units of PRBC. continue Feosol 325mg PO BID (2) Hypertension Status: Chronic Comment: BP stable. continue Lisinorpil and Coreg Hospital Course - Lab Results Lab Results: Most Recent Lab Values WBC 5.8 K/uL (4.8-10.8) 08/16/18 10:00 RBC 3.59 Mil/uL (3.80-5.20) L 08/16/18 10:00 Hgb 10.0 g/dL (12.0-16.0) L D 08/16/18 10:00 Hct 29.8 % (34.0-47.0) L 08/16/18 10:00 MCV 83.2 fl (81.0-99.0) D 08/16/18 10:00 MCH 27.8 pg (27.0-31.0) 08/16/18 10:00 MCHC 33.5 g/dL (33.0-37.0) 08/16/18 10:00 RDW 19.2 % (11.5-14.5) H 08/16/18 10:00 Plt Count 256 K/uL (130-400) 08/16/18 10:00 MPV 8.2 fl (7.2-11.7) 08/15/18 17:30 Neut % (Auto) 68.2 % (50.0-75.0) 08/15/18 17:30 Lymph % (Auto) 24.6 % (20.0-40.0) 08/15/18 17:30 [place] % (Auto) 5.9 % (0.0-10.0) 08/15/18 17:30 Eos % (Auto) 1.0 % (0.0-4.0) 08/15/18 17:30 Baso % (Auto) 0.3 % (0.0-2.0) 08/15/18 17:30 Neut # (Auto) 4.1 K/uL (1.8-7.0) 08/15/18 17:30 Lymph # (Auto) 1.5 K/uL (1.0-4.3) 08/15/18 17:30 [place] # (Auto) 0.4 K/uL (0.0-0.8) 08/15/18 17:30 Eos # (Auto) 0.1 K/uL (0.0-0.7) 08/15/18 17:30 Baso # (Auto) 0.0 K/uL (0.0-0.2) 08/15/18 17:30 PT 11.5 Seconds (9.8-13.1) 08/15/18 18:38 INR 1.0 08/15/18 18:38 APTT 26.3 Seconds (25.6-37.1) 08/15/18 18:38 Sodium 139 mmol/l (132-148) 08/16/18 10:00 Potassium 3.7 MMOL/L (3.6-5.0) 08/16/18 10:00 Chloride 103 mmol/L (98-107) 08/16/18 10:00 Carbon Dioxide 26 mmol/L (22-30) 08/16/18 10:00 Anion Gap 14 (10-20) 08/16/18 10:00 BUN 29 mg/dl (7-17) H 08/16/18 10:00 Creatinine 1.1 mg/dl (0.7-1.2) 08/16/18 10:00 Est GFR ( Amer) 58 08/16/18 10:00 Est GFR (Non-Af Amer) 48 08/16/18 10:00 POC Glucose (mg/dL) 90 mg/dL (65-110) 08/15/18 18:20 Random Glucose 93 mg/dL (65-105) 08/16/18 10:00 Calcium 8.4 mg/dL (8.4-10.2) 08/16/18 10:00 Phosphorus 4.0 mg/dl (2.5-4.5) 08/15/18 17:30 Magnesium 2.1 MG/DL (1.6-2.3) 08/15/18 17:30 Iron 88 ug/dL (37-170) 08/15/18 21:00 TIBC 306 ug/dL (250-450) 08/15/18 21:00 % Saturation 29 % (20-55) 08/15/18 21:00 Ferritin 11.8 ng/Ml (11.1-264.0) 08/15/18 21:16 Total Bilirubin < 0.1 mg/dl (0.2-1.3) L 08/15/18 17:30 AST 23 U/L (14-36) 08/15/18 17:30 ALT 27 U/L (9-52) 08/15/18 17:30 Alkaline Phosphatase 53 U/L (38-126) 08/15/18 17:30 Troponin I < 0.0120 ng/mL (0.00-0.120) 08/15/18 17:30 Total Protein 6.6 G/DL (6.3-8.2) 08/15/18 17:30 Albumin 3.4 g/dL (3.5-5.0) L 08/15/18 17:30 Globulin 3.1 gm/dL (2.2-3.9) 08/15/18 17:30 Albumin/Globulin Ratio 1.1 (1.0-2.1) 08/15/18 17:30 Lipase 288 U/L (23-300) 08/15/18 17:30 Urine Color Straw (YELLOW) 08/15/18 20:10 Urine Clarity Clear (Clear) 08/15/18 20:10 Urine pH 7.0 (5.0-8.0) 08/15/18 20:10 Ur Specific [place] 1.012 (1.003-1.030) 08/15/18 20:10 Urine Protein Negative mg/dL (NEGATIVE) 08/15/18 20:10 Urine Glucose (UA) Neg mg/dL (NEGATIVE) 08/15/18 20:10 Urine Ketones Negative mg/dL (NEGATIVE) 08/15/18 20:10 Urine Blood Negative (NEGATIVE) 08/15/18 20:10 Urine Nitrate Negative (NEGATIVE) 08/15/18 20:10 Urine Bilirubin Negative (NEGATIVE) 08/15/18 20:10 Urine Urobilinogen 0.2-1.0 mg/dL (0.2-1.0) 08/15/18 20:10 Ur Leukocyte Esterase Trace [place]/uL (Negative) 08/15/18 20:10 Urine RBC (Auto) 3 /hpf (0-3) 08/15/18 20:10 Urine Microscopic WBC 5 /hpf (0-5) 08/15/18 20:10 Ur Squamous Epith Cells < 1 /hpf (0-5) 08/15/18 20:10 Urine Bacteria Rare (<OCC) 08/15/18 20:10 Hyaline Casts 3-5 /hpf (0-2) H 08/15/18 20:10 Blood Type O POSITIVE 08/15/18 17:30 Antibody Screen Negative 08/15/18 17:30 Crossmatch See Detail 08/15/18 17:30 BBK History Checked Patient has bt 08/15/18 17:30 - Hospital Course Hospital Course: 82 yo female with history of chronic iron def anemia, HTN and depression was admitted because of symptomatic severe anemia: easy fatigue, presyncope and exertional dyspnea. Patient received 2 units of PRBC last night and her Hgb went up from 7.5 to 10. Patient felt better and agreed to follow up with Dr Lenny Ellison in a week. Discharge Exam - Head Exam Head Exam: NORMAL INSPECTION - Eye Exam Eye Exam: absent: Scleral icterus - ENT Exam ENT Exam: Mucous Membranes Moist - Respiratory Exam Respiratory Exam: absent: Rales, Rhonchi, Wheezes, Respiratory Distress - Cardiovascular Exam Cardiovascular Exam: REGULAR RHYTHM, +S1, +S2 - GI/Abdominal Exam GI & Abdominal Exam: Soft. absent: Tenderness - Rectal Exam Rectal Exam: Deferred - Neurological Exam Neurological exam: Alert, Oriented x3 - Psychiatric Exam Psychiatric exam: Normal Affect - Skin Skin Exam: Dry, Intact Discharge Plan - Follow Up Plan Condition: FAIR Disposition: HOME/ ROUTINE
--- NOTE | 2018-08-16 17:01 | CARD ---
APPROVED REPORT Date of service: 08/15/2018 EKG Measurement Heart [id number] <Conclusion> Sinus rhythm with 1st degree AV block Minimal voltage criteria for LVH, may be normal variant Borderline ECG
== END 2018-08-16 14:33 | disposition home or self-care (01) ==
LOC: H.ER 16:36 → H.ERHOLD 18:41 → H.MEDSURG1 21:16
DX: D50.9 Iron deficiency anemia, unspecified (principal); E78.5 Hyperlipidemia, unspecified; I12.9 Hypertensive chronic kidney disease with stage 1 through stage 4 chronic kidney disease, or unspecified chronic kidney disease; J45.909 Unspecified asthma, uncomplicated; N18.9 Chronic kidney disease, unspecified; Z90.49 Acquired absence of other specified parts of digestive tract; F32.9 Major depressive disorder, single episode, unspecified; F41.9 Anxiety disorder, unspecified; J30.2 Other seasonal allergic rhinitis; Z79.899 Other long term (current) drug therapy
CPT/HCPCS: 36415; 36430; 71045; 80048; 80053; 81003; 82728; 82948; 83540; 83690; 83735; 84100; 84484; 85025; 85027; 85610; 85730; 86850; 86900; 86920; 93005; 99285; G0378; J7030; P9051